=== PATIENT | male | born 1945 | race Caucasian/White ===

== ENCOUNTER 2017-02-24 09:49 | Emergency (ER) | payer MEDICARE ==
[2017-02-24 10:30] VITALS: BP 131/59
--- NOTE | 2017-02-24 10:57 | UC ---
Respiratory Complaint HPI - HPI Summary HPI Summary: cough x 2 weeks + chest congestion , productive cough with yellow sputum + sob , wheezing no fever, no chills - History of Current Complaint Chief Complaint: UCRespiratory Stated Complaint: COUGH,TIGHT CHEST Time Seen by Provider: 02/24/17 10:33 Hx Obtained From: Patient Onset/Duration: Gradual Onset, Lasting Days - 2, Still Present Timing: Constant Severity Initially: Moderate Severity Currently: Moderate Character: Cough: Productive - yellow Aggravating Factors: Exertion, Deep Breaths Alleviating Factors: Nothing Associated Signs And Symptoms: Positive: Dyspnea, Wheezing, URI, Nasal Congestion. Negative: Fever, Chills, Pleuritic Chest Pain, Hemoptysis, Dizziness - Allergies/Home Medications Allergies/Adverse Reactions: Allergies Allergy/AdvReac Type Severity Reaction Status Date / Time Clavulanic Acid AdvReac GI Upset Verified 02/24/17 10:30 environmental Allergy Congestion Uncoded 02/24/17 10:30 Home Medications: Home Medications Amoxicillin CAP* [Amoxicillin 500 MG CAP*] 500 mg PO BID 02/24/17 [History Confirmed 02/24/17] PMH/Surg Hx/FS Hx/Imm Hx Cardiovascular History Of: Reports: Cardiac Disorders - "borderline heart attack ", Hypertension Respiratory History Of: Reports: COPD - "mayo's lung" - Surgical History Surgical History: Yes Surgery Procedure, Year, and Place: Sinus Polyp, 2015, [place]; 2 tooth extractions 2012 and Dec 2013 - Family History Known Family History: Positive: Diabetes - Social History Alcohol Use: None Substance Use Type: None Smoking Status (MU): Never Smoked Tobacco - Immunization History Most Recent Influenza Vaccination: [id number] Most Recent Tetanus Shot: unknown Review of Systems Constitutional: Negative Skin: Negative Eyes: Negative ENT: Nasal Discharge Respiratory: Shortness Of Breath, Cough Cardiovascular: Negative Gastrointestinal: Negative All Other Systems Reviewed And Are Negative: Yes Physical Exam Triage Information Reviewed: Yes Appearance: Well-Appearing, No Pain Distress, Well-Nourished Vital Signs: Initial Vital Signs Temp 98.5 F 02/24/17 10:28 Pulse 56 02/24/17 10:28 Resp 16 02/24/17 10:28 BP 131/59 02/24/17 10:28 Pulse Ox 98 02/24/17 10:28 Vital Signs Reviewed: Yes Eyes: Positive: Conjunctiva Clear ENT: Positive: Normal ENT inspection, Hearing grossly normal, Pharynx normal Neck exam: Normal Neck: Positive: Supple, Nontender, No Lymphadenopathy Respiratory: Positive: Chest non-tender, Lungs clear, Normal breath sounds Cardiovascular: Positive: RRR, No Murmur, Pulses Normal Skin Exam: Normal UC Diagnostic Evaluation - Laboratory O2 Sat by Pulse Oximetry: 98 Respiratory Course/Dx - Differential Dx/Diagnosis Provider Diagnoses: BRONCHITIS Discharge - Discharge Plan Condition: Stable Disposition: HOME Prescriptions: Albuterol HFA INHALER* [Ventolin HFA Inhaler*] 2 puff INH Q6H PRN #1 mdi PRN Reason: Sob/Wheezing Benzonatate CAP* [Tessalon 100 MG CAP*] 100 mg PO TID PRN #21 cap PRN Reason: Cough Prednisone 20 mg PO BID #10 tab Patient Education Materials: Acute Bronchitis (ED) Referrals: Keven Lopez [Primary Care Provider] - 7 Days
== END 2017-02-24 11:02 | disposition home or self-care (01) ==
LOC: UCCORT 09:49
DX: J40 Bronchitis, not specified as acute or chronic (principal); I10 Essential (primary) hypertension; J44.9 Chronic obstructive pulmonary disease, unspecified
CPT/HCPCS: 99212; G0463

== ENCOUNTER 2018-01-28 10:45 | Emergency (ER) | payer MEDICARE ==
[2018-01-28 11:58] VITALS: BP 138/71
[2018-01-28] MEDS ORDERED: Aspirin Low Dose CHEW TAB* 81 MG PO ONE (12:49)
--- NOTE | 2018-01-28 12:52 | ED ---
HPI Cardiac - HPI Summary HPI Summary: 72 yr old male with the complaint of chest ache, SOB. He also complains of sinus congestion. he states he lay down last night to go to bed and felt like he was SOB. He also complains of intermittent ache in his chest, presently, 2. Non radiating. No fever or chills. No NV, sweats. No other complaints. - History of Current Complaint Chief Complaint: UCRespiratory Stated Complaint: SINUS Time Seen by Provider: 01/28/18 12:15 Pain Intensity: 0 - Allergy/Home Medications Allergies/Adverse Reactions: Allergies Allergy/AdvReac Type Severity Reaction Status Date / Time amoxicillin [From Augmentin] AdvReac GI Upset Verified 01/28/18 11:58 clavulanic acid AdvReac GI Upset Verified 01/28/18 11:58 [From Augmentin] Home Medications: Home Medications Fluticasone NASAL SPRAY 50MCG* [Flonase NASAL SPRAY 50MCG*] 2 spray BOTH NARES DAILY 01/28/18 [History Confirmed 01/28/18] Ubidecarenone [Co Q-10] 200 mg PO DAILY 01/28/18 [History Confirmed 01/28/18] PMH/Surg Hx/FS Hx/Imm Hx Cardiovascular History: Reports: Hx Hypertension Respiratory History: Reports: Hx Chronic Obstructive Pulmonary Disease (COPD) - "mayo's lung" - Surgical History Surgery Procedure, Year, and Place: Sinus Polyp, 2016, [place]; 2 tooth extractions 2012 and Dec 2013 Infectious Disease History: No Infectious Disease History: Denies: Traveled Outside the [place] in Last 30 Days - Family History Known Family History: Positive: Diabetes - Social History Alcohol Use: None Substance Use Type: Reports: None Smoking Status (MU): Never Smoked Tobacco Review of Systems Constitutional: Negative Positive: Nasal Discharge Positive: Chest Pain Positive: Shortness Of Breath All Other Systems Reviewed And Are Negative: Yes Physical Exam Triage Information Reviewed: Yes Vital Signs On Initial Exam: Initial Vitals Temp Pulse Resp BP Pulse Ox 97.8 F 69 16 138/71 98 01/28/18 11:53 01/28/18 11:53 01/28/18 11:53 01/28/18 11:53 01/28/18 11:53 Vital Signs Reviewed: Yes Appearance: Positive: Well-Appearing, No Pain Distress Skin: Positive: Warm, Skin Color Reflects Adequate Perfusion Head/Face: Positive: Normal Head/Face Inspection Eyes: Positive: EOMI ENT: Positive: Pharynx normal, Nasal congestion Neck: Positive: Nontender Respiratory/Lung Sounds: Positive: Clear to Auscultation, Breath Sounds Present Cardiovascular: Positive: RRR. Negative: Murmur Abdomen Description: Positive: Nontender Musculoskeletal: Positive: Strength/ROM Intact Neurological: Positive: Sensory/Motor Intact, Alert, Oriented to Person Place, Time, CN Intact II-III Psychiatric: Positive: Normal AVPU Assessment: Alert - [place]ey Coma Scale Best Eye Response: 4 - Spontaneous Best Motor Response: 6 - Obeys Commands Best Verbal Response: 5 - Oriented Coma Scale Total: 15 Diagnostics - Vital Signs Vital Signs Temp Pulse Resp BP Pulse Ox 01/28/18 11:53 97.8 F 69 16 138/71 98 - Laboratory Lab Statement: Any lab studies that have been ordered have been reviewed, and results considered in the medical decision making process. - EKG 01/28/18 Cardiac Rate: NL EKG Rhythm: Sinus Rhythm EKG Interpretation: inverted inferior T waves. Disposition - Course Course Of Treatment: 72 yr old male with ache in his chest. His EKG looks the same compared to 2014. He is signing out AMA with refusal of ambulance transport to the hospital ER. His states she is driving him. - Diagnoses Provider Diagnoses: Chest pain, Shortness of breath Discharge - Discharge Plan Condition: Good Disposition: AGAINST MEDICAL ADVICE Referrals: Irina Silvestre MD [Primary Care Provider] -
== END 2018-01-28 12:54 | disposition left against medical advice (07) ==
LOC: UCCORT 10:45
DX: R07.9 Chest pain, unspecified (principal); R06.02 Shortness of breath; Z88.0 Allergy status to penicillin; Z88.8 Allergy status to other drugs, medicaments and biological substances; J44.9 Chronic obstructive pulmonary disease, unspecified
CPT/HCPCS: 93005; 99212; A9270-GY; G0463

== ENCOUNTER 2018-06-22 14:31 | Emergency (ER) | payer MEDICARE ==
--- OUTSIDE RECORDS SUMMARY | 2018-06-22 14:46 | XMS REPORT ---
:1945 External Reference #:[id number] Author Organization [facility] 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 [employer] Unavailable Delfina Miller PA Primary Care Physician Unavailable Payers Type Date Identification Numbers Payment Provider Subscriber Medicare Primary Policy Number: [id number] Medicare Cedric Phillips PayID: [id number] [address] [place] [address] Commercial Policy Number: [id number] [employer] Medicare Sima Phillips PayID: [id number] [address] [address] [place] [address] Problems Date Description Provider Status Onset: 03/11/2018 Chronic obstructive lung disease ABRAHAN Metcalf Active Onset: 03/11/2018 Essential hypertension ABRAHAN Metcalf Active Onset: 11/03/2003 Localized, primary osteoarthritis Active Onset: 10/05/2014 Syncope and collapse Eileen Phoenix MD Active Onset: 10/05/2014 Chest pain Eileen Phoenix MD Active Onset: 10/16/2014 Conduction disorder of the heart Eileen Phoenix MD Active Family History Date Family Member(s) Problem(s) Comments : (age 92 Father due to Years) Emphysema Father Emphysema : (age 92 Mother due to Diabetes Years) Mother Diabetes Mellitus Type 2 Children 5 1 child with sinus problems 1 son with alcoholism. : (age 77 Paternal Grandfather due to Prostate Years) Cancer Paternal Grandmother Asthma Social History Type Date Description Comments Marital Status Lives With Diet Patient follows no dietary restrictions Occupation Currently Working Occupation [employer] Cigarette Use Never Smoked Cigarettes ETOH Use Negative For Denies alcohol use Smoking Patient denies history of smoking Recreational Drug Use Denies Drug Use Daily Caffeine Does Not Consume Caffeine Exercise Type/Frequency Exercises regularly General Hx Text He reports he has advance directives and health care proxy in place. Allergies, Adverse Reactions, Alerts Date Description Reaction Status Severity Comments 12/14/2009 Environmental active 03/11/2018 Augmentin active nausea Medications Medication Date Status Form Strength Qnty SIG Indications Ordering Provider Benzonatate 06/08/ Hx Capsules 100mg take 1 Unknown 2017 - capsule by mouth 2017 every 6 to 8 hours if needed for cough Doxycycline 06/08/ Hx Capsules 100mg take 1 Unknown Hyclate 2018 - capsule by mouth 2017 twice a day Prednisone 06/08/ Hx Tablets 10mg Take 4 Unknown 2017 - Tablets By Mouth 2017 Daily For 3 Days Then, 3 Tabs Daily For 3... Amlodipine 04/22/ Active Tablets 10mg 30tab 1 by mouth Christine Besylate 2017 s every day Bethany Ferraro Crestor 04/22/ Active Tablets 5mg 30tab 1 tabs by E78.5 Christine 2017 s mouth Bethany Ferraro every day at bedtime Aspir-81 / Active Tablets DR 81mg 1 by mouth Unknown 0000 every day Multivitamins / Active Capsules 90cap 1 by mouth Unknown 0000 s every day Breo Ellipta / Active Aerosol 200-25mcg take 1 Unknown 0000 /Inh puff once daily. Proair HFA / Active Aerosol 108(90Bas take 2 Unknown 0000 e) puffs mcg/Act every 6 hours as needed for shortness of breath. Mometasone / Active Suspension 50mcg/Act one spray Unknown Furoate 0000 each nostril every day - Claritin-D 12 / Active Tablets ER 5-120mg 1 by mouth Unknown Hour 0000 12HR twice a day as needed for congestion /allergies Ipratropium 04/11/ Hx Solution 0.02% 1 spray Garcia Chau 2017 - each beth Portillo MD 06/10/ daily for 2018 2 months. Omron 7 Series 03/11/ Hx Device 1unit use daily I10 Christine Blood Pressure 2017 - s as Bethany Ferraro Monitor 2017 to monitor bp/ dx:htn Pravastatin 10/16/ Tablets 20mg 90tab 1 tab by [place] Sodium 2013 mouth MD Alban 2017 night at bedtime Amlodipine 10/05/ Hx Tablets 5mg 90tab 1 by mouth [place] Besylate 2013 every day MD Alban 2017 Metoprolol / Hx Unknown Succinate 0000 Multivitamins Unknown 0000 Aspirin / Hx Unknown 0000 Garlic Hx Unknown 0000 Metoprolol / Hx Tablets 50mg 180ta 1 po qd Unknown Tartrate - bs 2013 Amlodipine / Hx Tablets 2.5mg 90tab 1 by mouth Unknown Besylate every day 2013 Pravastatin / Hx Tablets 20mg 90tab 1 by mouth [place] Sodium every day MD Alban 2013 Co Q10 Maximum / Hx Capsules 200mg 1 PO Daily Unknown Strength 0000 - 2017 Vital Signs Date Vital Result Comment 06/11/2018 BP Systolic Sitting Left Arm 118 mmHg BP Diastolic Sitting Left Arm 60 mmHg Body Temperature 98.3 F Heart Rate 69 /min Weight 191.00 lb O2 % BldC Oximetry 92 % 04/22/2018 BP Systolic Sitting Right Arm 130 mmHg BP Diastolic Sitting Right Arm 82 mmHg Body Temperature 98.7 F Heart Rate 80 /min Weight 188.25 lb O2 % BldC Oximetry 96 % 03/26/2018 BP Systolic Sitting Left Arm 140 mmHg BP Diastolic Sitting Left Arm 70 mmHg Heart Rate 68 /min Respiratory Rate 18 /min Height 72 inches 6'0" Weight 190.00 lb BMI (Body Mass Index) 25.8 kg/m2 BSA (Body Surface Area) 2.08 m2 [place] body weight in kilograms 81 O2 % BldC Oximetry 97 % 03/11/2018 BP Systolic 142 mmHg BP Diastolic 80 mmHg Body Temperature 97.7 F Heart Rate 70 /min Height 72 inches 6'0" Weight 192.00 lb BMI (Body Mass Index) 26.0 kg/m2 BSA (Body Surface Area) 2.09 m2 [place] body weight in kilograms 81 O2 % BldC Oximetry 97 % 10/16/2014 BP Systolic Sitting Left Arm 142 mmHg BP Diastolic Sitting Left Arm 68 mmHg Heart Rate 62 /min Respiratory Rate 14 /min Height 72 inches 6'0" Weight 196.00 lb BMI (Body Mass Index) 26.6 kg/m2 BSA (Body Surface Area) 2.11 m2 10/05/2014 BP Systolic Sitting Right Arm 140 mmHg BP Diastolic Sitting Right Arm 62 mmHg Heart Rate 46 /min Respiratory Rate 16 /min Height 72 inches 6'0" Weight 195.00 lb BMI (Body Mass Index) 26.4 kg/m2 BSA (Body Surface Area) 2.11 m2 11/01/2009 Height 70 inches 5'10" Weight 196.00 lb BMI (Body Mass Index) 28.1 kg/m2 Results Test Date Test Result H/L Range Note CBS W/Automated Diff 06/09/2018 White Blood Count 12.0 K/uL High 3.4-10.5 1 Red Blood Count 4.88 M/uL 4.20-5.80 1 Hemoglobin 15.7 gm/dL 12.8-17.0 1 Hematocrit 45.6 % 38.0-48.0 1 Mean Cell Volume 93.4 fl 80.0-96.0 1 Mean Corpuscular HGB 32.2 pg 27.0-33.0 1 Mean Corpuscular HGB Conc 34.4 g/dL 31.7-36.0 1 Platelet Count 330 K/uL 155-360 1 Red Cell Distri Width SD 44.0 fl 36-51 1 Red Cell Distri Width %CV 13.2 % 11.6-15.8 1 Mean Platelet Volume 9.2 fL 6.6-10.6 1 Neut% 57.1 % 33.0-73.0 1 Lymph % 29.8 % 20.0-42.0 1 [place] % 12.0 % High 0.0-10.0 1 Eo% 0.9 % 0.0-6.6 1 Bas% 0.2 % 0.0-1.1 1 Neut# 6.86 K/uL 1.8-7.0 1 Lymph # 3.59 K/uL 1.0-4.0 1 [place] # 1.44 K/uL High 0.0-0.8 1 Eos # 0.11 K/uL 0.0-0.5 1 Baso # 0.03 K/uL 0.0-0.1 1 Potassium SerPl-[facility] 01/28/2018 Potassium SerPl-sCnc 4.1 3.5-5.1 Neutrophils/leuk NFr Bld 01/28/2018 Neutrophils/leuk NFr 54.7 33.0-73.0 Auto Bld Auto RDW RBC Auto 01/28/2018 RDW RBC Auto 44.3 36-51 RDW RBC Auto-Rto 01/28/2018 RDW RBC Auto-Rto 13.4 11.6-15.8 Serum carbon dioxide 01/28/2018 Serum carbon dioxide 26 21-32 measurement measurement Serum or plasma albumin 01/28/2018 Serum or plasma albumin 3.9 3.4-5.0 measurement measurement (mass/volume) (mass/volume) Serum or plasma alkaline 01/28/2018 Serum or plasma 70 45-117 phosphatase measurement alkaline phosphatase ( measurement (enzymatic activity/volume) Serum or plasma 01/28/2018 Serum or plasma 23 15-37 aspartate aspartate aminotransferase measure aminotransferase measurement (enzymatic activity/volume) Serum or plasma calcium 01/28/2018 Serum or plasma calcium 8.4 Low 8.5- 10.1 measurement measurement (mass/volume) (mass/volume) Serum or plasma 01/28/2018 Serum or plasma 0.8 0.6-1.3 creatinine measurement creatinine measurement (mass/volum (mass/volume) Serum or plasma glucose 01/28/2018 Serum or plasma glucose 115 High 74- 106 measurement measurement (mass/volume) (mass/volume) Serum or plasma protein 01/28/2018 Serum or plasma protein 7.4 6.4-8.2 measurement measurement (mass/volume) (mass/volume) Serum or plasma total 01/28/2018 Serum or plasma total 0.3 0.2-1.0 bilirubin measurement bilirubin measurement (mass/ (mass/volume) Serum or plasma urea 01/28/2018 Serum or plasma urea 19 High 7-18 nitrogen measurement nitrogen measurement (mass/vo (mass/volume) Serum sodium measurement 01/28/2018 Serum sodium 140 136-145 measurement Anion Gap SerPl-sCnc 01/28/2018 Anion Gap SerPl-sCnc 6 Low 8-16 Automated blood basophil 01/28/2018 Automated blood 0.04 0.0-0.1 count (count/volume) basophil count (count/volume) Automated blood 01/28/2018 Automated blood 0.10 0.0-0.5 eosinophil count eosinophil count Automated blood 01/28/2018 Automated blood 47.1 38.0-48.0 hematocrit (volume hematocrit (volume fraction) fraction) Automated blood 01/28/2018 Automated blood 1.86 1.0-4.0 lymphocyte count lymphocyte count (number/volume) (number/volume) Automated blood platelet 01/28/2018 Automated blood 244 155-360 count platelet count Automated blood platelet 01/28/2018 Automated blood 9.4 6.6-10.6 mean volume measurement platelet mean volume measurement Albumin/Glob SerPl 01/28/2018 Albumin/Glob SerPl 1.1 Alt SerPl-cCnc 01/28/2018 Alt SerPl-cCnc 24 12-78 Automated erythrocyte 01/28/2018 Automated erythrocyte 31.5 27.0-33.0 mean corpuscular mean corpuscular hemoglobin hemoglobin (mass per erythrocyte) Automated erythrocyte 01/28/2018 Automated erythrocyte 34.4 31.7-36.0 mean corpuscular mean corpuscular hemoglobin hemoglobin concentration measurement (mass/volume) Automated erythrocyte 01/28/2018 Automated erythrocyte 91.5 80.0-96.0 mean corpuscular volume mean corpuscular volume BUN/Creat SerPl 01/28/2018 BUN/Creat SerPl 23.7 Basophils/leuk NFr Bld 01/28/2018 Basophils/leuk NFr Bld 0.7 0.0-1.1 Auto Auto Blood erythrocytes 01/28/2018 Blood erythrocytes 5.15 4.20-5.80 automated count automated count (number/volume) (number/volume) Blood hemoglobin 01/28/2018 Blood hemoglobin 16.2 12.8-17.0 measurement measurement (mass/volume) (mass/volume) Blood leukocytes 01/28/2018 Blood leukocytes 6.1 3.4-10.5 automated count automated count (number/volume) (number/volume) Blood monocytes 01/28/2018 Blood monocytes 0.75 0.0-0.8 automated count automated count (number/volume) (number/volume) Chloride SerPl-sCnc 01/28/2018 Chloride SerPl-sCnc 108 High 98-107 Eosinophil/leuk NFr Bld 01/28/2018 Eosinophil/leuk NFr Bld 1.6 0.0-6.6 Auto Auto Globulin Ser Calc-mCnc 01/28/2018 Globulin Ser Calc-mCnc 3.5 1.9-4.3 Lymphocytes/leuk NFr Bld 01/28/2018 Lymphocytes/leuk NFr 30.6 20.0-42.0 Auto Bld Auto Monocytes/leuk NFr Bld 01/28/2018 Monocytes/leuk NFr Bld 12.4 High 0.0- 10.0 Auto Auto Neutrophils # Bld Auto 01/28/2018 Neutrophils # Bld Auto 3.32 1.8-7.0 Laboratory test finding 10/05/2014 TSH Reflex FT4 and/or 1.35 0.36-3.74 2 FT3 uIU/mL 1 ASTHMA ACTING UP 2 QUERY: Reflex add FT3? Y QUERY: Reflex add FT4? Y Procedures Date CPT Code Description Status 04/09/2018 61196 Bronchospasm Provocation Evaluation Multi Spirometric Completed Determinati 04/09/2018 57932 Spirometry Completed 10/05/2014 57100 Holter Monitor 24HR Inter/Report Completed 10/05/2014 28975 EKG-Tracing And Report Completed 09/23/2014 82487 Echocardiogram Complete Completed 09/23/2014 65484 Stress Test Interpre And Report Only Completed 09/23/2014 16348 Stress Test Physician Super Only Completed 09/23/2014 08724 Stress Test Physician Super Only Completed 09/23/2014 94292 EKG Interpretation And Report Only Completed 09/23/2014 37185 Myocardial Imaging Tomographic Multiple Study AT Rest Completed Or Stress 11/01/2009 45084 Radiology, Hips Min. 2 Views, Including Pelvis Completed 11/01/2009 26881 Radiology, L-S Spine Complete Completed Encounters Type Date Location Provider CPT E/M Dx Office Visit 04/22/2018 9:15a Family Medicine ABRAHAN Metcalf 77527 J45.20 I10 E78.5 J31.0 Office Visit 03/26/2018 2:00p [place] [address] J45.20 J32.9 J30.89 Office Visit 03/11/2018 11:00a Family Medicine ABRAHAN Metcalf 20020 J44.1 R53.83 I10 Office Visit 10/16/2014 2:05p [place] [address] 780.2 427.89 Office Visit 10/05/2014 1:05p [place] [address] 427.89 780.2 786.50 Office Visit 09/23/2014 1:24p [place] [address] 786.50 Office Visit 12/16/2009 2:00p Orthopaedic Office Manish BriceñoMaximus Guevarahernan, 11443 726.5 M.D. Office Visit 11/01/2009 1:15p Orthopaedic Office Manish BriceñoMaximus Guevarahernan, 13894 726.5 M.D. 721.3 738.4 Plan of Care Future Appointment(s):07/09/2018 8:30 am - ABRAHAN Metcalf at [facility]06/24/2018 8:30 am - ABRAHAN Metcalf at [facility]06/26/2018 1: 30 pm - Jag Lezama MD at [facility]/31/2018 - ABRAHAN MetcalfJ18.8 Other pneumonia, unspecified organismComments:Complete medications as prescribed.Provide plenty of clear fluids. Try to pace yourself and get someadditional rest. Call office as needed if symptoms worsen or persist longer than expected.Follow up:Push out follow up appt for 4 weeks please.I10 Essential (primary) hypertensionComments:BP reading elevated recently. This may be due to the steroid and impairment of the lungs. Continue to monitor and we will evaluate ate your next visit.J44.1 Chronic obstructive pulmonary disease w (acute) exacerbationComments:Follow up with Dr. Isaacs is schduled for .E78.5 Hyperlipidemia, unspecifiedComments:Crestor is causing some muscle cramping at night. I suggest you take it every other night. We will see if this is better at your next visit. in 4 weeks.
[2018-06-22 14:55] VITALS: BP 128/71
--- NOTE | 2018-06-22 15:08 | UC ---
Throat Pain/Nasal Missael HPI - HPI Summary HPI Summary: 73 year old male presents with 2-3 day history of sore throat. States 2 weeks ago he was evaluated in the ED and diagnosed with pneumonia. He completed a 7 day course of doxycycline with improvement. Sore throat began after receiving allergy shots. Has history of asthma and is maintained on Breo and albuterol PRN. States had some SOB last night that improved with albuterol. Denies fever, chills, oral lesions, nasal congestion, nasal drainage, dysphagia, chest pain, heartburn. - History of Current Complaint Chief Complaint: UCGeneralIllness Stated Complaint: SORE THROAT Time Seen by Provider: 06/22/18 14:38 Hx Obtained From: Patient Onset/Duration: Gradual Onset Severity: Moderate Pain Intensity: 5 Cough: Nonproductive Associated Signs & Symptoms: Positive: Hoarseness. Negative: Dysphagia, Drooling, Wheezing, Sinus Discomfort, Nasal Discharge, Fever, Vomiting Related History: Seasonal Allergies - Allergies/Home Medications Allergies/Adverse Reactions: Allergies Allergy/AdvReac Type Severity Reaction Status Date / Time amoxicillin [From Augmentin] AdvReac GI Upset Verified 01/28/18 11:58 clavulanic acid AdvReac GI Upset Verified 01/28/18 11:58 [From Augmentin] Home Medications: Home Medications Fluticasone/Vilanterol [Breo Ellipta 200-25 Mcg INH] 1 each INH DAILY 06/22/18 [ History Confirmed 06/22/18] Ipratropium Uvalda 1 each INH DAILY 06/22/18 [History Confirmed 06/22/18] Mometasone NASAL (NF) [Nasonex (NF)] 1 spray INH DAILY 06/22/18 [History Confirmed 06/22/18] predniSONE [Prednisone 5 MG TAB] 5 mg PO DAILY 06/22/18 [History Confirmed 06/22] PMH/Surg Hx/FS Hx/Imm Hx Cardiovascular History: Hypertension Respiratory History: Asthma - Surgical History Surgical History: Yes Surgery Procedure, Year, and Place: Sinus Polyp, 2016, [place]; 2 tooth extractions 2012 and Dec 2013 - Family History Known Family History: Positive: Diabetes - Social History Occupation: Employed Full-time - [employer] Lives: With Family Alcohol Use: None Substance Use Type: None Smoking Status (MU): Never Smoked Tobacco - Immunization History Most Recent Influenza Vaccination: [id number] Most Recent Tetanus Shot: unknown Review of Systems Constitutional: Fever, Chills Skin: Negative ENT: Sore Throat Respiratory: Shortness Of Breath Cardiovascular: Negative Gastrointestinal: Negative Is Patient Immunocompromised?: No All Other Systems Reviewed And Are Negative: Yes Physical Exam Triage Information Reviewed: Yes Appearance: Well-Appearing, No Pain Distress, Well-Nourished Vital Signs: Initial Vital Signs Temp 98.5 F 06/22/18 14:46 Pulse 84 06/22/18 14:46 Resp 14 06/22/18 14:46 BP 128/71 06/22/18 14:46 Pulse Ox 96 06/22/18 14:46 Vital Signs Reviewed: Yes ENT: Positive: Pharyngeal erythema - mild, TMs normal, Uvula midline. Negative : Nasal congestion, Nasal drainage, Tonsillar swelling, Tonsillar exudate, Sinus tenderness Neck: Positive: Supple, Nontender, No Lymphadenopathy Respiratory: Positive: Lungs clear, Normal breath sounds, No respiratory distress Cardiovascular: Positive: RRR, No Murmur, Pulses Normal Skin Exam: Normal Throat Pain/Nasal Course/Dx - Course Course Of Treatment: 73 year old male with recent history of pneumonia which was treated outpatient with 7 day course doxycycline presents with 2-3 day history of sore throat. POC rapid strep negative. Hx of environmental allergies. Mild erythema without tonsilar edema or exudate. VSS. Likely a viral or allergy related pharyngitis. Recommend conservative treatment with rest, salt water gargles, OTC analgestics, and pushing fluids. Follow up with PCP in 7 days if no improvement. Verbalizes understanding and agrees with POC. - Differential Dx/Diagnosis Provider Diagnoses: Pharyngitis Discharge - Sign-Out/Discharge Documenting (check all that apply): Patient Departure - Discharge Plan Condition: Stable Disposition: HOME Patient Education Materials: Pharyngitis (ED) Referrals: Delfina Miller PA [Primary Care Provider] - Additional Instructions: Your rapid strep test in the clinic today was negative. I suspect that your symptoms are caused by a virus or allergy related. I do not see any indication for antibiotics at this time. Drink plenty of fluids. Take over the counter acetaminophen (Tylenol) according to directions as needed for pain. Use salt water gargles several times throughout the day to help with the sore throat. You may also use an over the counter Cloraseptic spray or Cepacol lozenges for temporary pain relief. Follow up with you primary care provider in 7 days if no improvement. Seek immediate medical attention in the emergency room for fever greater than 100.5 F, difficulty swallowing, difficulty breathing, or any worsening of symptoms. - Billing Disposition and Condition Condition: STABLE Disposition: Home
== END 2018-06-22 15:28 | disposition home or self-care (01) ==
LOC: UCCORT 14:31
DX: J02.9 Acute pharyngitis, unspecified (principal); Z88.0 Allergy status to penicillin; Z88.8 Allergy status to other drugs, medicaments and biological substances; I10 Essential (primary) hypertension; J45.909 Unspecified asthma, uncomplicated
CPT/HCPCS: 87651; 99211; G0463

== ENCOUNTER 2018-08-16 20:16 | Emergency (ER) | payer MEDICARE ==
--- OUTSIDE RECORDS SUMMARY | 2018-08-16 20:30 | XMS REPORT ---
:1945 External Reference #:[id number] Author Organization [facility] Address [address], [address] [place] [address] Phone [phone] Care Team Providers Name Role Phone Delfina Miller PA Care Team Information Internal Sales Engineer Unavailable Delfina Miller PA Primary Care Physician Unavailable Payers Type Date Identification Numbers Payment Provider Subscriber Commercial Policy Number: [id number] [employer] Medicare Cedric Phillips PayID: [id number] [address] [address] [place] [address] Medicare Primary Expires: 2018 Policy Number: Medicare Cedric Phillips [id number] PayID: [id number] [address] [address] [place] [address] Problems Date Description Provider Status Onset: 03/11/2018 Chronic obstructive lung disease Delfina Miller PA Active Onset: 03/11/2018 Essential hypertension Delfina Miller PA Active Onset: 11/03/2003 Localized, primary osteoarthritis Active [...] Form Strength Qnty SIG Indications Ordering Provider Montelukast 06/26/ Active Tablets 10mg 30tab take 1 J45.40 Kheti, Sodium 2018 s tablet MD Jag daily. Amlodipine 04/22/ Active Tablets 10mg 30tab 1 by mouth Tino Besylate 2018 s every day MD Irene Aspir-81 / Active Tablets DR 81mg 1 [...] a day as needed for congestion /allergies Benzonatate 06/08/ Hx Capsules 100mg take 1 Unknown 2018 - capsule by 2017 every 6 to 8 hours if needed for cough Doxycycline 06/08/ Hx Capsules 100mg take 1 Unknown Hyclate 2018 - capsule by mouth 2017 twice a day Prednisone 06/08/ Hx Tablets 10mg Take 4 Unknown 2018 - Tablets By Mouth 2017 Daily For 3 Days Then, 3 Tabs Daily For 3... Crestor 04/22/ Hx Tablets 5mg 30tab 1 tabs by E78.5 Jasmine 2018 - s mouth Christine, 07/22/ every day M.D. 2018 at bedtime Ipratropium 04/11/ Hx Solution 0.02% 1 spray Chau, [place] 2018 - each beth Portillo MD 06/10/ daily for 2018 2 months. Omron 7 Series 03/11/ Hx Device 1unit use daily I10 Jasmine, Blood Pressure 2017 - s as Christine Monitor 03/12/ karen Sims 2018 to monitor bp/ dx:htn Pravastatin 10/16/ Hx Tablets 20mg 90tab 1 tab by Alban, Sodium 2013 mouth MD Eileen 03/11/ 2017 night at bedtime Amlodipine 10/05/ Hx Tablets 5mg 90tab 1 by mouth Alban Besylate 2013 - every day MD Eileen 2017 Metoprolol / Hx Unknown Succinate 0000 Multivitamins Hx Unknown 0000 Aspirin / Hx Unknown 0000 Garlic / Hx Unknown 0000 Metoprolol / Hx Tablets 50mg 180ta 1 po qd Unknown Tartrate 0000 - bs 2013 Amlodipine / Hx Tablets 2.5mg 90tab 1 by mouth Unknown Besylate - s every day 2013 Pravastatin / Hx Tablets 20mg 90tab 1 by mouth Alfred Phoenix - s every day MD iEleen 2013 Co Q10 Maximum / Hx Capsules 200mg 1 PO Daily Unknown Strength 0000 - 2017 Immunizations CPT Code Status Date Vaccine Lot # [id number] Given 07/22/2018 Influenza Vaccine Split Virus Preservative Free Im [id number] Use Vital Signs Date Vital Result Comment 07/22/2018 BP Systolic Sitting Right Arm 128 mmHg BP Diastolic Sitting Right Arm 72 mmHg Body Temperature 98.2 F Heart Rate 65 /min Weight 189.38 lb O2 % BldC Oximetry 96 % 06/26/2018 BP Systolic Sitting Left Arm 130 mmHg BP Diastolic Sitting Left Arm 80 mmHg Heart Rate 83 /min Respiratory Rate 14 /min Weight 187.00 lb O2 % BldC Oximetry 98 % 06/11/2018 BP Systolic Sitting Left Arm 118 [...] kg/m2 BSA (Body Surface Area) 2.08 m2 Corrigan body weight in kilograms 81 O2 % BldC Oximetry 97 % 03/11/2018 BP Systolic 142 mmHg BP Diastolic 80 mmHg Body Temperature 97.7 F Heart Rate 70 /min Height 72 inches 6'0" Weight 192.00 lb BMI (Body Mass Index) 26.0 kg/m2 BSA (Body Surface Area) 2.09 m2 Corrigan body weight in kilograms 81 O2 % [...] Test Date Test Result H/L Range Note Basic Metabolic Panel 06/24/2018 Glucose 103 mg/dL 74-106 BUN 16 mg/dL 7-18 Creatinine 0.9 mg/dL 0.6-1.3 Glom Filtration Rate, Estimate >60 mL/min >60 If >60 mL/min >60 1 BUN/Creat 17.7 ratio Sodium 140 mmol/L 136-145 Potassium 4.4 mmol/L 3.5-5.1 Chloride 105 mmol/L 98-107 Carbon Dioxide 28 mmol/L 21-32 Anion Gap 7 mEq/L Low 8-16 Calcium 8.6 mg/dL 8.5-10.1 Reflex add FT3? Y Reflex add FT4? Y CBS W/Automated Diff 06/24/2018 White Blood Count 8.4 K/uL 3.4-10.5 Red Blood Count 5.15 M/uL 4.20-5.80 Hemoglobin 16.4 gm/dL 12.8-17.0 Hematocrit 48.9 % High 38.0-48.0 Mean Cell Volume 95.0 fl 80.0-96.0 Mean Corpuscular HGB 31.8 pg 27.0-33.0 Mean Corpuscular HGB Conc 33.5 g/dL 31.7-36.0 Platelet Count 275 K/uL 155-360 Red Cell Distri Width SD 46.4 fl 36-51 Red Cell Distri Width %CV 13.7 % 11.6-15.8 Mean Platelet Volume 9.8 fL 6.6-10.6 Neut% 53.9 % 33.0-73.0 Lymph % 29.5 % 20.0-42.0 Real % 14.7 % High 0.0-10.0 Eo% 1.4 % 0.0-6.6 Bas% 0.5 % 0.0-1.1 Neut# 4.50 K/uL 1.8-7.0 Lymph # 2.47 K/uL 1.0-4.0 Real # 1.23 K/uL High 0.0-0.8 Eos # 0.12 K/uL 0.0-0.5 Baso # 0.04 K/uL 0.0-0.1 TSH Reflex FT4 And/Or FT3 06/24/2018 Thyroid Stim Hormone 2.10 uIU/mL 0.30-4.20 Reflex add FT3? Y Reflex add FT4? Y LDL Cholesterol Profile 06/24/2018 Cholesterol 207 mg/dL High <200 2 Triglycerides 148 mg/dL <150 3 HDL Cholesterol 52 mg/dL >40 4 LDL-Cholesterol 125 mg/dL < 100 5 Reflex add FT3? Y Reflex add FT4? Y Laboratory test finding 06/24/2018 Slide Review DIFF ORDERED Differential-WBC Confirm 06/24/2018 Total Cells Counted 100 #CELLS Neutrophils% 61 % 33-73 Lymph% 25 % 20-42 Monocyte% 14 % High 0-10 Platelet Estimate NORMAL RBC Morphology NORMAL Laboratory test finding 06/22/2018 Rapid Strep Molecular Negative Negative 6 CBS W/Automated Diff 06/09/2018 White Blood Count 12.0 K/uL High 3.4-10.5 7 Red Blood Count 4.88 M/uL 4.20-5.80 7 Hemoglobin 15.7 gm/dL 12.8-17.0 7 Hematocrit 45.6 % 38.0-48.0 7 Mean Cell Volume 93.4 fl 80.0-96.0 7 Mean Corpuscular HGB 32.2 pg 27.0-33.0 7 Mean Corpuscular HGB Conc 34.4 g/dL 31.7-36.0 7 Platelet Count 330 K/uL 155-360 7 Red Cell Distri Width SD 44.0 fl 36-51 7 Red Cell Distri Width %CV 13.2 % 11.6-15.8 7 Mean Platelet Volume 9.2 fL 6.6-10.6 7 Neut% 57.1 % 33.0-73.0 7 Lymph % 29.8 % 20.0-42.0 7 Real % 12.0 % High 0.0-10.0 7 Eo% 0.9 % 0.0-6.6 7 Bas% 0.2 % 0.0-1.1 7 Neut# 6.86 K/uL 1.8-7.0 7 Lymph # 3.59 K/uL 1.0-4.0 7 Real # 1.44 K/uL High 0.0-0.8 7 Eos # 0.11 K/uL 0.0-0.5 7 Baso # 0.03 K/uL 0.0-0.1 7 Neutrophils/leuk NFr 01/28/2018 Neutrophils/leuk NFr 54.7 33.0-73.0 Bld Auto Bld Auto Potassium SerPl-sCnc 01/28/2018 Potassium SerPl-sCnc 4.1 3.5-5.1 RDW RBC Auto 01/28/2018 RDW RBC Auto 44.3 36-51 RDW RBC Auto-Rto 01/28/2018 RDW RBC Auto-Rto 13.4 11.6-15.8 Serum carbon dioxide 01/28/2018 Serum carbon dioxide 26 21-32 measurement measurement Serum or plasma albumin 01/28/2018 Serum or plasma albumin 3.9 3.4-5.0 measurement measurement (mass/volume) (mass/volume) Serum or plasma 01/28/2018 Serum or plasma 70 45-117 alkaline phosphatase alkaline phosphatase measurement ( measurement (enzymatic activity/volume) Serum or plasma 01/28/2018 Serum or plasma 23 15-37 aspartate aspartate aminotransferase aminotransferase measure measurement (enzymatic activity/volume) Serum or plasma calcium [...] measurement nitrogen measurement (mass/vo (mass/volume) Serum sodium 01/28/2018 Serum sodium 140 136-145 measurement measurement Alt SerPl-cCnc 01/28/2018 Alt SerPl-cCnc 24 12-78 Albumin/Glob SerPl 01/28/2018 Albumin/Glob SerPl 1.1 Anion Gap SerPl-sCnc 01/28/2018 Anion Gap SerPl-sCnc 6 Low 8-16 Automated blood 01/28/2018 Automated blood 0.04 0.0-0.1 basophil count basophil count (count/volume) (count/volume) Automated blood 01/28/2018 Automated blood 0.10 0.0-0.5 eosinophil count eosinophil count Automated blood 01/28/2018 Automated blood 47.1 38.0-48.0 hematocrit (volume hematocrit (volume fraction) fraction) Automated blood 01/28/2018 Automated blood 1.86 1.0-4.0 lymphocyte count lymphocyte count (number/volume) (number/volume) Automated blood 01/28/2018 Automated blood 244 155-360 platelet count platelet count Automated blood 01/28/2018 Automated blood 9.4 6.6-10.6 platelet mean volume platelet mean volume measurement measurement Automated erythrocyte 01/28/2018 Automated erythrocyte 31.5 27.0-33.0 mean corpuscular mean corpuscular hemoglobin hemoglobin (mass per erythrocyte) Automated erythrocyte 01/28/2018 Automated erythrocyte 34.4 31.7-36.0 mean corpuscular mean corpuscular hemoglobin hemoglobin concentration measurement (mass/volume) Automated erythrocyte 01/28/2018 Automated erythrocyte 91.5 80.0-96.0 mean corpuscular volume mean corpuscular volume Neutrophils # Bld Auto 01/28/2018 Neutrophils # Bld Auto 3.32 1.8-7.0 Monocytes/leuk NFr Bld 01/28/2018 Monocytes/leuk NFr Bld 12.4 High 0.0- 10.0 Auto Auto Lymphocytes/leuk NFr 01/28/2018 Lymphocytes/leuk NFr 30.6 20.0-42.0 Bld Auto Bld Auto Globulin Ser Calc-mCnc 01/28/2018 Globulin Ser Calc-mCnc 3.5 1.9-4.3 Eosinophil/leuk NFr Bld 01/28/2018 Eosinophil/leuk NFr Bld 1.6 0.0-6.6 Auto Auto Chloride SerPl-sCnc 01/28/2018 Chloride SerPl-sCnc 108 High 98-107 Blood monocytes 01/28/2018 Blood monocytes 0.75 0.0-0.8 automated count automated count (number/volume) (number/volume) Blood leukocytes 01/28/2018 Blood leukocytes 6.1 3.4-10.5 automated count automated count (number/volume) (number/volume) Blood hemoglobin 01/28/2018 Blood hemoglobin 16.2 12.8-17.0 measurement measurement (mass/volume) (mass/volume) Blood erythrocytes 01/28/2018 Blood erythrocytes 5.15 4.20-5.80 automated count automated count (number/volume) (number/volume) Basophils/leuk NFr Bld 01/28/2018 Basophils/leuk NFr Bld 0.7 0.0-1.1 Auto Auto BUN/Creat SerPl 01/28/2018 BUN/Creat SerPl 23.7 Laboratory test finding 10/05/2014 TSH Reflex FT4 and/or 1.35 uIU/mL 0.36 -3.74 8 FT3 1 Note: Persistent reduction for 3 months or more in an eGFR <60 mL/min/1.73 m2 defines CKD. Patients with eGFR values >/=60 mL/min/1.73 m2 may also have CKD if evidence of persistent proteinuria is present. The original MDRD equation for estimated GFR is not valid for patients less than 18 years of age. Additional information may be found at www.kdoqi.org. 2 Reference Guidelines*: Desirable: ........... < 200 mg/dL Borderline High: ..... 200-239 mg/dL High: ................ >=240 mg/dL * The National Cholesterol Education Program (NCEP) 3 Reference Guidelines*: Normal: ............. < 150 mg/dL Borderline High: .... 150-199 mg/dL High: ............... 200-499 mg/dL Very High: .......... > 500 mg/dL * Source: National Cholesterol Education Program (NCEP) 4 Reference Guidelines*: Low HDL: ..... < 40 mg/dL Normal: ..... 40-60 mg/dL Desirable: ... > 60 mg/dL *The National Cholesterol Education Program(NCEP) 5 Reference Guidelines*: Optimal:........... <100 mg/dL Near Optimal....... 100-129 mg/dL Borderline High.... 130-159 mg/dL High............... 160-189 mg/dL Very High.......... >=190 mg/dL * Source: National Cholesterol Education Program (NCEP) 6 [employer] Instructor: [id number] ASTHMA ACTING UP 8 QUERY: Reflex add FT3? Y QUERY: Reflex add FT4? Y Procedures Date CPT Code Description Status 07/22/2018 08199 Remove Impacted Cerumen Completed 06/26/2018 10552 Pulse Oximetry Completed 04/09/2018 99281 Bronchospasm Provocation Evaluation Multi Spirometric Completed Determinati 04/09/2018 42366 Spirometry Completed 10/05/2014 13674 Holter Monitor 24HR Inter/Report Completed 10/05/2014 94495 EKG-Tracing And Report Completed 09/23/2014 59463 Echocardiogram Complete Completed 09/23/2014 12837 Stress Test Interpre And Report Only Completed 09/23/2014 80551 Stress Test Physician Super Only Completed 09/23/2014 26156 Stress Test Physician Super Only Completed 09/23/2014 62574 EKG Interpretation And Report Only Completed 09/23/2014 42881 Myocardial Imaging Tomographic Multiple Study AT Rest Completed Or Stress 11/01/2009 12266 Radiology, Hips Min. 2 Views, Including Pelvis Completed 11/01/2009 76525 Radiology, L-S Spine Complete Completed Encounters Type Date Location Provider CPT E/M Dx Office Visit 07/22/2018 8:00a [facility] [place] [address] I10 J45.40 G47.62 H61.21 Z23 Office Visit 06/26/2018 1:30[place] [address] J45.40 J30.89 Office Visit 06/11/2018 3:15p [facility] [place] [address] J18.8 I10 J44.1 E78.5 Office Visit 04/22/2018 9:15a [facility] [place] [address] J45.20 I10 E78.5 J31.0 Office Visit 03/26/2018 2:00[place] [address] J45.20 J32.9 J30.89 Office Visit 03/11/2018 11:00a [facility] [place] [address] J44.1 R53.83 I10 Office Visit 10/16/2014 2:05p [place] [address] 780.2 427.89 Office Visit 10/05/2014 1:05p [place] [address] 427.89 780.2 786.50 Office Visit 09/23/2014 1:24p [place] [address] 786.50 Office Visit 12/16/2009 2:00p Orthopaedic Office [place] [place] [address]16[address] 726.5 Office Visit 11/01/2009 1:15p Orthopaedic Office [place] 75526 726.5 721.3 738.4 Plan of Care Future Appointment(s):10/21/2018 11:00 am - Delfina Miller PA at [facility]09/25/2018 1:45 pm - Jag Lezama MD at [id number]/10/2018 - Delfina Miller PAI10 Essential (primary) hypertensionComments:Well controlled. Continue current medication. Check in with [facility] to see if they have your mdication or a similar substitue that could cost less.J45.40 Moderate persistent asthma, uncomplicatedComments:Patient reports mild improvement in breathing since adding the Singulair.G47.62 Sleep related leg crampsComments: Stay well hydrated. Try tonic water at bedtime. The suplements you mentioned may also help.H61.21 Impacted cerumen, right earComments:After bathing, gently pull earlobe back, turn head to the side and wiggle a plush towel in the ear opening to draw out any softened wax.Z23 Encounter for immunizationComments: Please check with [facility] and get a record of the shots you have received. You may need a shingles vaccine and a pneumonia shot.
--- OUTSIDE RECORDS SUMMARY | 2018-08-16 20:30 | XMS REPORT ---
:1945 External Reference #:[id number] Author Organization [facility] Address [address], [address] [place] [address] Phone [phone] Care Team Providers Name Role Phone Delfina Miller PA Care Team Information Merchandise Flow Manager Unavailable Delfina Miller PA Primary Care Physician Unavailable Payers Type Date Identification Numbers Payment Provider Subscriber Commercial Policy Number: [id number] [employer] Medicare Cedric Phillips PayID: [id number] [address] [address] [place] [address] Medicare Primary Expires: 2018 Policy Number: Medicare Cedric Phillips [id number] PayID: [id number] [address] [address] [place] [address] Problems Date Description Provider Status Onset: 03/11/2018 [...] Form Strength Qnty SIG Indications Ordering Provider Amoxicillin 08/12/ Active Tablets 875mg 20tab 1 by mouth J01.90 Chano, 2018 s twice a Sia, day PNP-BC, LIQUID SUGAR FORTIFIER, Ibclc Montelukast 06/26/ Active Tablets 10mg 30tab take 1 J45.40 Kheti, Sodium 2018 s tablet MD Jag daily. Amlodipine 04/22/ Active Tablets 10mg 30tab 1 by mouth Tino, Besylate 2018 s every day MD Irene [...] take 1 Unknown 2018 - capsule by mouth 2017 every 6 to 8 hours if needed for cough Doxycycline 06/08/ Hx Capsules 100mg take 1 Unknown Hyclate 2018 - capsule by mouth 2018 twice a day Prednisone 06/08/ Hx Tablets 10mg Take 4 Unknown 2018 - Tablets By Mouth 2018 Daily For 3 Days Then, 3 Tabs Daily For 3... Crestor 04/22/ Hx Tablets 5mg 30tab 1 tabs by E78.5 Jasmine, 2018 - s mouth Christine, 07/22/ every day M.D. 2017 at bedtime Ipratropium 04/11/ Hx Solution 0.02% 1 spray Chau, Seanor 2017 - each beth Portillo MD 06/10/ daily for 2018 2 months. Omron 7 Series 03/11/ Hx Device 1unit use daily I10 Jasmine, Blood Pressure 2017 - s as Christine, Monitor directed M.D. 2018 to monitor bp/ dx:htn Pravastatin 10/16/ Hx Tablets 20mg 90tab 1 tab by Alfred Phoenix 2013 mouth MD Eileen 03/11/ 2017 night at bedtime Amlodipine 10/05/ Hx Tablets 5mg 90tab 1 by mouth Joao Phoenix 2013 every day MD Eileen 2017 Metoprolol / Hx Unknown Succinate 0000 Multivitamins / Hx Unknown 0000 Aspirin / Hx Unknown 0000 Garlic / Hx Unknown 0000 Metoprolol / Hx Tablets 50mg 180ta 1 po qd Unknown Tartrate 0000 - bs 2013 Amlodipine / Hx Tablets 2.5mg 90tab 1 by mouth Unknown Besylate 0000 - s every day 2013 Pravastatin / Hx Tablets 20mg 90tab 1 by mouth Alfred Phoenix s every day MD Eileen 2013 Co Q10 Maximum / Hx Capsules 200mg 1 PO Daily Unknown Strength 0000 - 2017 Immunizations CPT Code Status Date Vaccine Lot # [id number] Given 07/22/2018 Influenza High Dose [id number] Vital Signs Date Vital Result Comment 08/12/2018 BP Systolic 146 mmHg BP Diastolic 80 mmHg Body Temperature 97.0 F Heart Rate 85 /min Respiratory Rate 20 /min Weight 190.00 lb O2 % BldC Oximetry 98 % Ra Pain Level 4 sinuses 07/22/2018 BP Systolic Sitting Right Arm 128 [...] kg/m2 BSA (Body Surface Area) 2.08 m2 Tucker body weight in kilograms 81 O2 % BldC Oximetry 97 % 03/11/2018 BP Systolic 142 mmHg BP Diastolic 80 mmHg Body Temperature 97.7 F Heart Rate 70 /min Height 72 inches 6'0" Weight 192.00 lb BMI (Body Mass Index) 26.0 kg/m2 BSA (Body Surface Area) 2.09 m2 Tucker body weight in kilograms 81 O2 % [...] % 33.0-73.0 Lymph % 29.5 % 20.0-42.0 [place] % 14.7 % High 0.0-10.0 Eo% 1.4 % 0.0-6.6 Bas% 0.5 % 0.0-1.1 Neut# 4.50 K/uL 1.8-7.0 Lymph # 2.47 K/uL 1.0-4.0 [place] # 1.23 K/uL High 0.0-0.8 Eos # [...] 7 Lymph % 29.8 % 20.0-42.0 7 [place] % 12.0 % High 0.0-10.0 7 Eo% 0.9 % 0.0-6.6 7 Bas% 0.2 % 0.0-1.1 7 Neut# 6.86 K/uL 1.8-7.0 7 Lymph # 3.59 K/uL 1.0-4.0 7 [place] # 1.44 K/uL High 0.0-0.8 7 Eos [...] Source: National Cholesterol Education Program (NCEP) 6 Gas Reverser: [id number] ASTHMA ACTING UP 8 QUERY: Reflex add FT3? Y QUERY: Reflex add FT4? Y Procedures Date CPT Code Description Status 07/22/2018 44442 Remove Impacted Cerumen Completed 06/26/2018 02181 Pulse Oximetry Completed 04/09/2018 99005 Bronchospasm Provocation Evaluation Multi Spirometric Completed Determinati 04/09/2018 49986 Spirometry Completed 10/05/2014 35095 Holter Monitor 24HR Inter/Report Completed 10/05/2014 48591 EKG-Tracing And Report Completed 09/23/2014 82326 Echocardiogram Complete Completed 09/23/2014 65175 Stress Test Interpre And Report Only Completed 09/23/2014 13437 Stress Test Physician Super Only Completed 09/23/2014 20730 Stress Test Physician Super Only Completed 09/23/2014 40170 EKG Interpretation And Report Only Completed 09/23/2014 28781 Myocardial Imaging Tomographic Multiple Study AT Rest Completed Or Stress 11/01/2009 76096 Radiology, Hips Min. 2 Views, Including Pelvis Completed 11/01/2009 62274 Radiology, L-S Spine Complete Completed Encounters Type Date Location Provider CPT E/M Dx Office Visit 07/22/2018 8:00a [place] [address] I10 J45.40 G47.62 H61.21 Z23 Office Visit 06/26/2018 1:30[place] [address] J45.40 J30.89 Office Visit 06/11/2018 3:15p [place] [address] J18.8 I10 J44.1 E78.5 Office Visit 04/22/2018 9:15[place] [address] J45.20 I10 E78.5 J31.0 Office Visit 03/26/2018 2:00[place] [address] J45.20 J32.9 J30.89 Office Visit 03/11/2018 11:00[place] [address] J44.1 R53.83 I10 Office Visit 10/16/2014 2:05p [place] [address] 780.2 427.89 Office Visit 10/05/2014 1:05p [place] [address] 427.89 780.2 786.50 Office Visit 09/23/2014 1:24p [place] [address] 786.50 Office Visit 12/16/2009 2:00p Orthopaedic Office Manish Wood [address] 726.5 MD Office Visit 11/01/2009 1:15p Orthopaedic Office DeThomas Manish NavarroMaximus, 42818 726.5 721.3 738.4 Plan of Care Future Appointment(s):10/21/2018 11:00 am - Delfina Miller PA at Family Ewkttlhq89/14/2018 1:45 pm - Jag Lezama MD at Pulmonology
[2018-08-16 20:37] VITALS: BP 132/76
--- NOTE | 2018-08-16 21:01 | UC ---
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 Concerned about pneumonia. " -Here with his . -Reports that he is concerning may have pneumonia because he takes temperature today and it was 100 orally. Has had some tightness in his chest. Has a history of asthma. Takes Singulair and albuterol. Also on Breo. 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 He is concerning restarting allergy shots soon. He is somewhat of a poor historian and is unable to qualify if his sinus pain and pressure is improved or not. He keeps saying that is moved on to his chest. Reports a lot of postnasal drip and phlegm. States he had pneumonia in May. The symptoms feel different however. States that Augmentin causes GI upset. he denies a history of amoxicillin allergy as listed in his chart. - History of Current Complaint Chief Complaint: UCRespiratory Stated Complaint: FEVER/SINUSES Time Seen by Provider: 08/16/18 21:00 Pain Intensity: 0 - Allergies/Home Medications Allergies/Adverse Reactions: Allergies Allergy/AdvReac Type Severity Reaction Status Date / Time amoxicillin [From Augmentin] AdvReac GI Upset Verified 08/16/18 20:37 clavulanic acid AdvReac GI Upset Verified 08/16/18 20:37 [From Augmentin] Home Medications: Home Medications Amoxicillin PO (*) [Amoxicillin 875 MG (*)] 875 mg PO BID 08/16/18 [History Confirmed 08/16/18] PMH/Surg Hx/FS Hx/Imm Hx Previously Healthy: Yes Respiratory History: Asthma - Surgical History Surgical History: Yes Surgery Procedure, Year, and Place: Sinus Polyp, 2016, [place]; 2 tooth extractions 2012 and Dec 2013 - Family History Known Family History: Positive: Diabetes - Social History Alcohol Use: None Substance Use Type: None Smoking Status (MU): Never Smoked Tobacco - Immunization History Most Recent Influenza Vaccination: [id number] Most Recent Tetanus Shot: unknown Review of Systems Constitutional: Fever - MAXIMUM TEMPERATURE 100. Oral. Skin: Negative Eyes: Negative ENT: Negative, Sinus Congestion, Sinus Pain/Tenderness Respiratory: Cough Cardiovascular: Negative Gastrointestinal: Negative Genitourinary: Negative Motor: Negative Neurovascular: Negative Musculoskeletal: Negative Neurological: Negative Psychological: Negative Is Patient Immunocompromised?: No All Other Systems Reviewed And Are Negative: Yes Physical Exam Triage Information Reviewed: Yes Appearance: Well-Appearing, No Pain Distress, Well-Nourished - Somewhat of a poor historian. Vital Signs: Initial Vital Signs Temp 99.8 F 08/16/18 20:30 Pulse 92 08/16/18 20:30 Resp 17 08/16/18 20:30 BP 132/76 08/16/18 20:30 Pulse Ox 95 08/16/18 20:30 Eye Exam: Normal ENT Exam: Normal ENT: Positive: Pharyngeal erythema - Positive postnasal drip. Minimal erythema. , TMs normal. Negative: Hoarse voice, Sinus tenderness Dental Exam: Normal Neck exam: Normal Neck: Positive: 1 Respiratory: Positive: Decreased breath sounds, Other: - Patient did not cough once during entire interview.. Negative: Normal breath sounds, No respiratory distress, No accessory muscle use, Respiratory distress, Crackles, Rhonchi, Stridor, Wheezing Cardiovascular Exam: Normal Cardiovascular: Positive: RRR Abdominal Exam: Normal Abdomen Description: Positive: Nontender, Soft Musculoskeletal Exam: Normal Neurological Exam: Normal Psychological Exam: Normal Skin Exam: Normal UC Diagnostic Evaluation - Laboratory O2 Sat by Pulse Oximetry: 95 Respiratory Course/Dx - Course Course Of Treatment: We discussed risks of prednisone including but not limited to anxiety, agitation, insomnia, GI upset, elevated blood pressures and blood sugar readings, adrenal crisis and avascular necrosis of the hip. -No evidence for bacterial pneumonia based on exam. Small dose of prednisone given to help with tightness - Differential Dx/Diagnosis Differential Diagnosis/HQI/PQRI: Asthma, Lower Resp Infection, Sinusitis Provider Diagnoses: Asthmatic bronchitis Discharge - Sign-Out/Discharge Documenting (check all that apply): Patient Departure All imaging exams completed and their final reports reviewed: No Studies - Discharge Plan Condition: Stable Disposition: HOME Prescriptions: methylPREDNISolone [Medrol Dosepak 4 MG*] 4 mg PO DAILY #1 [place] Patient Education Materials: Asthma (ED), Acute Bronchitis (ED) Referrals: Delfina Miller PA [Primary Care Provider] - 5 Days Additional Instructions: There is no evidence of any pneumonia based upon your exam. Your lungs to indicate that the asthma may be flared as there is not much air movement apparent. The low dose prednisone can help this. continue using allergy meds and inhalers as directed. - Billing Disposition and Condition Condition: STABLE Disposition: Home
== END 2018-08-16 21:44 | disposition home or self-care (01) ==
LOC: UCCORT 20:16
DX: J45.909 Unspecified asthma, uncomplicated (principal); Z88.0 Allergy status to penicillin; Z88.8 Allergy status to other drugs, medicaments and biological substances
CPT/HCPCS: 99212; G0463

== ENCOUNTER 2018-08-23 09:47 | Emergency (ER) | payer MEDICARE ==
--- NOTE | 2018-08-23 11:56 | UC ---
Throat Pain/Nasal Missael HPI - History of Current Complaint Chief Complaint: UCRespiratory Stated Complaint: SINUSES,COUGH,CONGESTION RECHECK Time Seen by Provider: 08/23/18 11:46 Pain Intensity: 8 - Allergies/Home Medications Allergies/Adverse Reactions: Allergies Allergy/AdvReac Type Severity Reaction Status Date / Time amoxicillin [From Augmentin] AdvReac GI Upset Verified 08/16/18 20:37 clavulanic acid AdvReac GI Upset Verified 08/16/18 20:37 [From Augmentin] Home Medications: Home Medications Mometasone NASAL (NF) [Nasonex (NF)] 1 spray .SEE ORDER DAILY WITH MEAL [History Confirmed 08/23/18] Montelukast Sodium TAB* [Singulair TAB*] 10 mg PO DAILY 08/23/18 [History Confirmed 08/23/18] PMH/Surg Hx/FS Hx/Imm Hx - Surgical History Surgical History: Yes Surgery Procedure, Year, and Place: Sinus Polyp, 2016, [place]; 2 tooth extractions 2012 and Dec 2013 - Family History Known Family History: Positive: Diabetes - Social History Alcohol Use: None Substance Use Type: None Smoking Status (MU): Never Smoked Tobacco - Immunization History Most Recent Influenza Vaccination: [id number] Most Recent Tetanus Shot: unknown Physical Exam Vital Signs: Initial Vital Signs Temp 98.3 F 08/23/18 10:36 Pulse 68 08/23/18 10:36 Resp 18 08/23/18 10:36 BP 122/77 08/23/18 10:36 Pulse Ox 98 08/23/18 10:36 Discharge - Discharge Plan Referrals: Delfina Miller PA [Primary Care Provider] -
[2018-08-23] MEDS ORDERED: Albuterol/Ipratropium NEB.SOL* Albuterol 2.5 MG/Ipratropium 0.5 MG 3 ML INH ONE (12:04)
--- NOTE | 2018-08-23 12:04 | UC ---
Respiratory Complaint HPI - HPI Summary HPI Summary: Patient presents to urgent care with recurrent coughing and low-grade fevers. Patient states in August 12 she was seen by his primary doctor. Patient was put on amoxicillin. Patient states she took this for 10 days finishing yesterday. Last Sunday patient was evaluated urgent care for ongoing cough and wheezing. Patient was put on a Medrol Dosepak. Patient states he was feeling good the early part is week. Patient states last night he started to feel crummy again. Patient states he felt short of breath. Patient states he was wheezing. Patient states he was coughing productive of yellow phlegm. Patient' s has an albuterol MDI that he's used 2 or 3 times yesterday and once today with short-term relief. Patient denies lightheadedness. No chest pain. No abdominal pain. No nausea vomiting. Patient did not change his pillowcase nor his toothbrush following his treatment. Patient has not followed up with his primary care doctor. 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 Patient's medications reviewed this visit - History of Current Complaint Chief Complaint: UCRespiratory Stated Complaint: SINUSES,COUGH,CONGESTION RECHECK Time Seen by Provider: 08/23/18 11:46 Hx Obtained From: Patient Onset/Duration: Gradual Onset Severity Initially: Mild Severity Currently: Moderate Pain Intensity: 8 Pain Scale Used: 0-10 Numeric - Allergies/Home Medications Allergies/Adverse Reactions: Allergies Allergy/AdvReac Type Severity Reaction Status Date / Time amoxicillin [From Augmentin] AdvReac GI Upset Verified 08/16/18 20:37 clavulanic acid AdvReac GI Upset Verified 08/16/18 20:37 [From Augmentin] Home Medications: Home Medications Mometasone NASAL (NF) [Nasonex (NF)] 1 spray .SEE ORDER DAILY WITH MEAL [History Confirmed 08/23/18] Montelukast Sodium TAB* [Singulair TAB*] 10 mg PO DAILY 08/23/18 [History Confirmed 08/23/18] PMH/Surg Hx/FS Hx/Imm Hx Previously Healthy: Yes Cardiovascular History: Hypertension Respiratory History: Asthma - Surgical History Surgical History: Yes Surgery Procedure, Year, and Place: Sinus Polyp, 2016, [place]; 2 tooth extractions 2012 and Dec 2013 - Family History Known Family History: Positive: Diabetes - Social History Occupation: Works From/At Home - [employer] Alcohol Use: None Substance Use Type: None Smoking Status (MU): Never Smoked Tobacco - Immunization History Most Recent Influenza Vaccination: [id number] Most Recent Tetanus Shot: unknown Review of Systems Constitutional: Negative Skin: Negative Eyes: Negative ENT: Negative Respiratory: Cough All Other Systems Reviewed And Are Negative: Yes Physical Exam - Summary Physical Exam Summary: Vital Signs Reviewed: Yes A+Ox3, no distress Eyes: Conjunctiva Clear, LULA. EOM intact and full ENT: Hearing grossly normal TM x 2 clear, mild turbianted boggy, pnd, mmoist, uvula midline, no exudate, no erythema Neck: Positive: Supple Respiratory: Positive: No respiratory distress, No accessory muscle use + scattered expiratory wheeze. no rhonci, no cough cardiovascular: RRR nl s1, s2 no m/r no edema abd soft + BS nt/nd no guarding, no distension Musculoskeletal Exam: ORTIZ x 4 without difficulty Strength Intact, ROM Intact Neurological: Positive: Alert, + sensation throughout Psychological: Positive: Normal Response To Family Skin: Positive: no rash, no ecchymosis Triage Information Reviewed: Yes Vital Signs: Initial Vital Signs Temp 98.3 F 08/23/18 10:36 Pulse 68 08/23/18 10:36 Resp 18 08/23/18 10:36 BP 122/77 08/23/18 10:36 Pulse Ox 98 08/23/18 10:36 Diagnostic Evaluation - Laboratory O2 Sat by Pulse Oximetry: 98 - Radiology Radiology Interpretation Completed By: Radiologist - Patient Name: CHANCE RÍOS Medical Record#: [id number] Re-Evaluation - Re-Evaluation First Eval Change: Improved - Pt feels better after neb No wheeze feeling better Will disp nebulizer pred taper Respiratory Course/Dx - Course Course Of Treatment: Patient presents with recurrence of cough and wheeze. Patient was recently treated with antibiotics and draw dose pack. Patient states he was feeling better until last night. Patient has albuterol inhaler but he uses very intermittently. Patient always once today. Patient's concern is getting pneumonia. Patient has not contacted her primary. Vital signs stable. Will check chest x-ray and duoneb. Anticipate will likely longer prednisone taper. We will reinforce secretion precaution. We'll recommend a spacer - Differential Dx/Diagnosis Provider Diagnoses: acute bronchitis Discharge - Sign-Out/Discharge Documenting (check all that apply): Patient Departure All imaging exams completed and their final reports reviewed: Yes - Discharge Plan Condition: Stable Disposition: HOME Patient Education Materials: Acute Bronchitis (ED) Forms: *Gen. Provider Communication Referrals: Delfina Miller PA [Primary Care Provider] - Additional Instructions: -Use your albuterol puffer or nebulizer - 2 puffs ever 4 hours for the next 2 days - use with a spacer - then as needed -Stay well hydrated - avoid excess caffeine and all alcohol - eat regular, healthy meals - Take prednisone exactly as prescribed until gone - change your bed linens and toothbrush - humidify the air in the room where you sleep -Contact your doctor to arrange a follow-up appointment next week. Call your doctor, return here or go to the emergency department with any questions or concerns - Billing Disposition and Condition Condition: STABLE Disposition: Home
--- NOTE | 2018-08-23 12:27 | RAD ---
Indication: Cough and wheezing. 2 views of the chest including dual energy PA views demonstrate no mediastinal shift. Heart is of normal size and configuration. Lung mcmahan demonstrate no pleural fluid, pneumonia or pneumothorax. IMPRESSION: No active cardiopulmonary disease is noted.
[2018-08-23 12:41] VITALS: BP 131/67
== END 2018-08-23 13:13 | disposition home or self-care (01) ==
LOC: UCCORT 09:47
DX: J20.9 Acute bronchitis, unspecified (principal); Z88.0 Allergy status to penicillin; Z88.8 Allergy status to other drugs, medicaments and biological substances; I10 Essential (primary) hypertension; J45.909 Unspecified asthma, uncomplicated
CPT/HCPCS: 71046; 99212; A9270-GY; G0463

== ENCOUNTER 2019-05-14 19:39 | Emergency (ER) | payer MEDICARE ==
--- OUTSIDE RECORDS SUMMARY | 2019-05-14 20:25 | XMS REPORT | Continuity of Care Document ---
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 Delfina Miller PA Primary Care Physician Unavailable Payers Date Identification Numbers Payment Provider Subscriber Policy Number: [id number] [facility] Cedric Phillips PayID: [id number] [address] [address] [place] [address] Expires: 2018 Policy Number: [id number] Medicare Cedric Phillips PayID: [id number] [address] [place] [address] Problems Active Problems Provider Date Chronic obstructive lung disease Delfina Miller PA Onset: 03/11/2018 Essential hypertension Delfina Miller PA Onset: 03/11/2018 Localized, primary osteoarthritis Onset: 11/03/2003 Syncope and collapse Eileen Phoenix MD Onset: 10/05/2014 Chest pain Eileen Phoenix MD Onset: 10/05/2014 Conduction disorder of the heart Eileen Phoenix MD Onset: 10/16/2014 Family History Date Family Member(s) Observation Comments : (age 92 Father due to Emphysema Years) Father Emphysema : (age 92 Mother due to Diabetes Years) Mother Diabetes Mellitus Type 2 Children 5 1 child with sinus problems 1 son with alcoholism. : (age 77 Paternal Grandfather due to Prostate Years) Cancer Paternal Grandmother Asthma Social History Type Date Description Comments Sex Unknown Marital Status Lives With Diet Patient follows no dietary restrictions Occupation Currently Working Occupation [employer] Tobacco Use Start: Unknown Never Smoked Cigarettes ETOH Use Negative For Denies alcohol use Tobacco Use Start: Unknown Patient denies history of smoking Recreational Drug Use Denies Drug Use Smoking Status Reviewed: 04/21/19 Patient denies history of smoking Exercise Type/Frequency Exercises regularly Allergies, Adverse Reactions, Alerts Active Allergies Reaction Severity Comments Date Environmental 12/14/2009 Augmentin nausea 03/11/2018 Medications Active Medications SIG Qnty Indications Ordering Provider Date Allergy Injections weekly Jag Lezama MD 09/25/2018 Amlodipine Besylate 1 by mouth every 90tabs Irene Jiménez, 04/22/2018 day 10mg Tablets Breo Ellipta take 1 puff once Unknown daily. 200-25mcg/Inh Aerosol Proair HFA take 2 puffs every Unknown 6 hours as needed 108(90Base) mcg/Act for shortness of Aerosol breath. Mometasone Furoate one spray each Unknown nostril every day 50mcg/Act Suspension - Albuterol Sulfate inhale contents of Unknown 1 vial in (2.5mg/3ML) 0.083% nebulizer every 4 Nebulizer hours History Medications Prednisone 4 tablets a day 12tabs J44.1 Luis Eduardo, 12/12/2018 - 10mg Tablets x 3 days JOHNSON Munoz 12/17/2018 Shingrix administer 1units Z23 Irene Jiménez MD 10/21/2018 - 50mcg/0.5ML vaccine as 02/18/2019 Suspension Rec directed. w repeat dose in 2-6 months Amoxicillin 1 by mouth 20tabs J01.90 Sia Madden, 08/12/2018 - 875mg twice a day PNP-JORDEN FRANCESP, Ibclc 08/30/2018 Tablets Montelukast Sodium take 1 tablet 90tabs J45.40 Jag Lezama MD 2017 - 10mg daily. 04/21/2019 Tablets Benzonatate take 1 capsule Unknown 06/08/2018 - 100mg by mouth every 06/18/2018 Capsules 6 to 8 hours if needed for cough Doxycycline Hyclate take 1 capsule Unknown 06/08/2018 - by mouth twice 06/18/2018 100mg Capsules a day Prednisone Take 4 Tablets Unknown 06/08/2018 - 10mg Tablets By Mouth Daily 06/13/2018 For 3 Days Then, 3 Tabs Daily For 3... Crestor 1 tabs by mouth 30tabs E78.5 Christine Ferraro M.D. 04/22/2018 - 5mg Tablets every day at 07/22/2018 bedtime Ipratropium [place] 1 spray each Bandar Chau MD 04/11/2018 - nare daily for 06/10/2018 0.02% Solution 2 months. Omron 7 Series Blood use daily as 1units I10 Christine Ferraro M.D. 03/11/2018 - Pressure Monitor directed to 03/12/2018 monitor bp/ Device dx:htn Pravastatin Sodium 1 tab by mouth 90tabs Eileen Phoenix MD 10/16/2014 - 20mg every night at 03/11/2018 Tablets bedtime Amlodipine Besylate 1 by mouth 90tabs Eileen Phoenix MD 10/05/2014 - 5mg every day 04/22/2018 Tablets Metoprolol Succinate Unknown - Unknown Multivitamins Unknown - Unknown Aspirin Unknown - Unknown Garlic Unknown - Unknown Metoprolol Tartrate 1 po qd 180tabs Unknown - 10/05/2014 50mg Tablets Aspir-81 1 by mouth Unknown - 81mg Tablets every day 04/21/2019 DR Multivitamins 1 by mouth 90caps Unknown - Capsules every day 04/21/2019 Amlodipine Besylate 1 by mouth 90tabs Unknown - every day 10/05/2014 2.5mg Tablets Pravastatin Sodium 1 by mouth 90tabs Eileen Phoenix MD - 20mg every day 10/16/2014 Tablets Co Q10 Maximum 1 PO Daily Unknown - Strength 06/11/2018 200mg Capsules Claritin-D 12 Hour 1 by mouth Unknown - twice a day as 04/21/2019 5-120mg Tablets ER needed for 12HR congestion/peña rgies Levocetirizine take 1 tablet a Unknown - Dihydrochloride day. 10/21/2018 5mg Tablets Meclizine HCL take 1 tablet 30tabs Irene Jiménez MD - 25mg by mouth four 04/21/2019 Tablets times a day if needed for vertigo Immunizations CPT Code Status Date Vaccine Lot # [id number] Given 10/21/2018 Pneumovax Injection [id number] 34450 Given 07/22/2018 Influenza High Dose [id number] 30114 Given 09/04/2017 Influenza Virus Vaccine, Quadrivalent, 36 Mos+, .5ML 29252 Given 09/04/2017 Pneumococcal Conjugate Vaccine 13 Valent For Intramuscular Use [id number] Given 10/10/2016 Influenza High Dose 26657 Given 03/29/2015 Zoster Vaccine Live Injection Vital Signs Date Vital Result Comment 04/21/2019 9:01am BP Systolic 124 mmHg BP Diastolic 70 mmHg Heart Rate 69 /min Height 72 inches 6'0" Weight 164.00 lb BMI (Body Mass Index) 22.2 kg/m2 BSA (Body Surface Area) 1.96 m2 [place] body weight in kilograms 81 kg O2 % BldC Oximetry 97 % 12/12/2018 1:44pm BP Systolic Sitting Resting Right Arm 128 mmHg BP Diastolic Sitting Resting Right Arm 76 mmHg Body Temperature 98.9 F Heart Rate 64 /min Respiratory Rate 20 /min Height 72 inches 6'0" Weight 192.00 lb BMI (Body Mass Index) 26.0 kg/m2 BSA (Body Surface Area) 2.09 m2 [place] body weight in kilograms 81 kg O2 % BldC Oximetry 97 % Ra 12/06/2018 2:03pm BP Systolic 138 mmHg BP Diastolic 68 mmHg BP Systolic Sitting Right Arm 142 mmHg BP Diastolic Sitting Right Arm 70 mmHg Heart Rate 77 /min Weight 192.12 lb O2 % BldC Oximetry 97 % 10/21/2018 10:54am BP Systolic Sitting Left Arm 132 mmHg BP Diastolic Sitting Left Arm 84 mmHg Body Temperature 98.4 F Heart Rate 96 /min Weight 191.25 lb O2 % BldC Oximetry 97 % 09/25/2018 1:48pm BP Systolic Sitting Left Arm 130 mmHg BP Diastolic Sitting Left Arm 78 mmHg Heart Rate 78 /min Respiratory Rate 18 /min Weight 191.00 lb O2 % BldC Oximetry 97 % 08/30/2018 10:57am BP Systolic Sitting Right Arm 140 mmHg BP Diastolic Sitting Right Arm 86 mmHg Body Temperature 97.8 F Heart Rate 75 /min Respiratory Rate 18 /min Weight 187.50 lb O2 % BldC Oximetry 94 % 08/12/2018 2:17pm BP Systolic 146 mmHg BP Diastolic 80 mmHg Body Temperature 97.0 F Heart Rate 85 /min Respiratory Rate 20 /min Weight 190.00 lb O2 % BldC Oximetry 98 % Ra Pain Level 4 sinuses 07/22/2018 8:01am BP Systolic Sitting Right Arm 128 mmHg BP Diastolic Sitting Right Arm 72 mmHg Body Temperature 98.2 F Heart Rate 65 /min Weight 189.38 lb O2 % BldC Oximetry 96 % 06/26/2018 1:30pm BP Systolic Sitting Left Arm 130 mmHg BP Diastolic Sitting Left Arm 80 mmHg Heart Rate 83 /min Respiratory Rate 14 /min Weight 187.00 lb O2 % BldC Oximetry 98 % 06/11/2018 3:28pm BP Systolic Sitting Left Arm 118 mmHg BP Diastolic Sitting Left Arm 60 mmHg Body Temperature 98.3 F Heart Rate 69 /min Weight 191.00 lb O2 % BldC Oximetry 92 % 04/22/2018 9:22am BP Systolic Sitting Right Arm 130 mmHg BP Diastolic Sitting Right Arm 82 mmHg Body Temperature 98.7 F Heart Rate 80 /min Weight 188.25 lb O2 % BldC Oximetry 96 % 03/26/2018 2:01pm BP Systolic Sitting Left Arm 140 mmHg BP Diastolic Sitting Left Arm 70 mmHg Heart Rate 68 /min Respiratory Rate 18 /min Height 72 inches 6'0" Weight 190.00 lb BMI (Body Mass Index) 25.8 kg/m2 BSA (Body Surface Area) 2.08 m2 [place] body weight in kilograms 81 kg O2 % BldC Oximetry 97 % 03/11/2018 10:57am BP Systolic 142 mmHg BP Diastolic 80 mmHg Body Temperature 97.7 F Heart Rate 70 /min Height 72 inches 6'0" Weight 192.00 lb BMI (Body Mass Index) 26.0 kg/m2 BSA (Body Surface Area) 2.09 m2 [place] body weight in kilograms 81 kg O2 % BldC Oximetry 97 % 10/16/2014 1:51pm BP Systolic Sitting Left Arm 142 mmHg BP Diastolic Sitting Left Arm 68 mmHg Heart Rate 62 /min Respiratory Rate 14 /min Height 72 inches 6'0" Weight 196.00 lb BMI (Body Mass Index) 26.6 kg/m2 BSA (Body Surface Area) 2.11 m2 10/05/2014 1:11pm BP Systolic Sitting Right Arm 140 mmHg BP Diastolic Sitting Right Arm 62 mmHg Heart Rate 46 /min Respiratory Rate 16 /min Height 72 inches 6'0" Weight 195.00 lb BMI (Body Mass Index) 26.4 kg/m2 BSA (Body Surface Area) 2.11 m2 11/01/2009 2:08pm Height 70 inches 5'10" Weight 196.00 lb BMI (Body Mass Index) 28.1 kg/m2 Results Test Date Facility Test Result H/L Range Note Laboratory test 04/21/2019 [facility] Fit Hemoccult Nagative finding Urine Dipstick 04/21/2019 [facility] Inhouse Ua Color yellow Yellow Ua Clarity clear Clear Ua Leuko negative Negative Ua Nitrite negative Negative Ua Urobilinogen 0.2 0.2 - 1.0 E.U./dL Ua Protein 0.15 g/L High Negative Ua PH 6.0 Low 6.5-7.5 Ua Blood negative Negative Ua Specific [place] 1.020 1.010-1.030 Ua Ketones negative Negative Ua Bilirubin negative Negative Ua Glucose negative Negative CBC W/Automated Diff 12/10/2018 [facility] [address] White Blood 7.0 K/uL N 3.4-10.[address] [place], [place] [id number] [phone] Red Blood Count 5.03 M/uL N 4.20-5.80 Hemoglobin 15.7 gm/dL N 12.8-17.0 Hematocrit 46.5 % N 38.0-48.0 Mean Cell Volume 92.4 fl N 80.0-96.0 Mean Corpuscular HGB 31.2 pg N 27.0-33.0 Mean Corpuscular HGB Conc 33.8 g/dL N 31.7-36.0 Platelet Count 316 K/uL N 155-360 Red Cell Distri Width SD 45.3 fl N 36-51 Red Cell Distri Width %CV 13.7 % N 11.6-15.8 Mean Platelet Volume 9.6 fL N 6.6-10.6 Neut% 57.2 % N 33.0-73.0 Lymph % 26.6 % N 20.0-42.0 [place] % 15.2 % High 0.0-10.0 Eo% 0.6 % N 0.0-6.6 Bas% 0.4 % N 0.0-1.1 Neut# 4.01 K/uL N 1.8-7.0 Lymph # 1.87 K/uL N 1.0-4.0 [place] # 1.07 K/uL High 0.0-0.8 Eos # 0.04 K/uL N 0.0-0.5 Baso # 0.03 K/uL N 0.0-0.1 Comprehensive Metabolic 12/10/[address] Glucose 113 mg/dL High 74-106 Panel [address] [place] [address] [phone] BUN 17 mg/dL N 7-18 Creatinine 0.9 mg/dL N 0.6-1.3 Glom Filtration Rate, Estimate >60 mL/min >60 If >60 mL/min >60 2 BUN/Creat 18.8 ratio Sodium 138 mmol/L N 136-145 Potassium 4.3 mmol/L N 3.5-5.1 Chloride 106 mmol/L N 98-107 Carbon Dioxide 27 mmol/L N 21-32 Anion Gap 5 mEq/L Low 8-16 Calcium 8.3 mg/dL Low 8.5-10.1 Total Protein 7.3 g/dL N 6.4-8.2 Albumin 3.8 g/dL N 3.4-5.0 Globulin 3.5 g/dL N 1.9-4.3 Alb/Glob 1.1 ratio Bilirubin,Total 0.4 mg/dL N 0.2-1.0 Sgot/Ast 31 U/L N 15-37 SGPT/Alt 38 U/L N 12-78 Alkaline Phosphatase 70 U/L N 45-117 Reflex add FT3? Y Reflex add FT4? Y TSH Reflex FT4 12/10/[address] Thyroid Stim 2.56 uIU/mL N 0.30-4.20 And/Or FT3 [address] [place] [address] [phone] Reflex add FT3? Y Reflex add FT4? Y LDL Cholesterol Profile 12/10/[address] Cholesterol 148 mg/dL <200 3 [address] [place], [place] [address] [phone] Triglycerides 69 mg/dL <150 4 HDL Cholesterol 54 mg/dL >40 5 LDL-Cholesterol 80 mg/dL < 100 6 Reflex add FT3? Y Reflex add FT4? Y Laboratory test 12/10/[address] Slide Review DIFF ORDERED finding [address] [place] [address] [phone] Differential-WBC 12/10/[address] Total Cells 100 #CELLS Confirm [address] [place] [address] [phone] Neutrophils% 50 % N 33-73 Lymph% 32 % N 20-42 Atypical Lymph% 7 % N 0-7 Monocyte% 8 % N 0-10 Eosinophil% 2 % N 0-5 Basophil% 1 % N 0-2 Platelet Estimate NORMAL RBC Morphology NORMAL Comprehensive Metabolic 09/21/2018 [facility] Glucose 180 mg/dL High 74-[address] [place] [address] [phone] BUN 15 mg/dL N 7-18 Creatinine 0.8 mg/dL N 0.6-1.3 Glom Filtration Rate, Estimate >60 mL/min >60 If >60 mL/min >60 8 BUN/Creat 18.7 ratio Sodium 139 mmol/L N 136-145 Potassium 4.0 mmol/L N 3.5-5.1 Chloride 104 mmol/L N 98-107 Carbon Dioxide 29 mmol/L N 21-32 Anion Gap 6 mEq/L Low 8-16 Calcium 8.2 mg/dL Low 8.5-10.1 Total Protein 7.0 g/dL N 6.4-8.2 Albumin 3.7 g/dL N 3.4-5.0 Globulin 3.3 g/dL N 1.9-4.3 Alb/Glob 1.1 ratio Bilirubin,Total 0.5 mg/dL N 0.2-1.0 Sgot/Ast 25 U/L N 15-37 SGPT/Alt 30 U/L N 12-78 Alkaline Phosphatase 72 U/L N 45-117 Differential-WBC Confirm 06/24/[address] Total Cells 100 # CELLS [address] [place] [address] [phone] Neutrophils% 61 % N 33-73 Lymph% 25 % N 20-42 Monocyte% 14 % High 0-10 Platelet Estimate NORMAL RBC Morphology NORMAL Laboratory test 06/24/[address] Slide Review DIFF ORDERED finding [address] [place], [place] [id number] [phone] LDL Cholesterol 06/24/[address] Cholesterol 207 mg/dL High < 200 9 Profile [address] [place] [address] [phone] Triglycerides 148 mg/dL <150 10 HDL Cholesterol 52 mg/dL >40 11 LDL-Cholesterol 125 mg/dL < 100 12 Reflex add FT3? Y Reflex add FT4? Y TSH Reflex FT4 06/24/[address] Thyroid Stim 2.10 uIU/mL N 0.30-4.20 And/Or FT3 [address] [facility] Hormone [place], [place] [id number] [phone] Reflex add FT3? Y Reflex add FT4? Y CBS W/Automated Diff 06/24/[address] White Blood 8.4 K/uL N 3.4-10.5 [address] [facility] [place] [address] [phone] Red Blood Count 5.15 M/uL N 4.20-5.80 Hemoglobin 16.4 gm/dL N 12.8-17.0 Hematocrit 48.9 % High 38.0-48.0 Mean Cell Volume 95.0 fl N 80.0-96.0 Mean Corpuscular HGB 31.8 pg N 27.0-33.0 Mean Corpuscular HGB Conc 33.5 g/dL N 31.7-36.0 Platelet Count 275 K/uL N 155-360 Red Cell Distri Width SD 46.4 fl N 36-51 Red Cell Distri Width %CV 13.7 % N 11.6-15.8 Mean Platelet Volume 9.8 fL N 6.6-10.6 Neut% 53.9 % N 33.0-73.0 Lymph % 29.5 % N 20.0-42.0 [place] % 14.7 % High 0.0-10.0 Eo% 1.4 % N 0.0-6.6 Bas% 0.5 % N 0.0-1.1 Neut# 4.50 K/uL N 1.8-7.0 Lymph # 2.47 K/uL N 1.0-4.0 [place] # 1.23 K/uL High 0.0-0.8 Eos # 0.12 K/uL N 0.0-0.5 Baso # 0.04 K/uL N 0.0-0.1 Basic Metabolic Panel 06/24/2018 [facility] [address] Glucose 103 mg/dL N 74- [address] [place], [place] [id number] [phone] BUN 16 mg/dL N 7-18 Creatinine 0.9 mg/dL N 0.6-1.3 Glom Filtration Rate, Estimate >60 mL/min >60 If >60 mL/min >60 13 BUN/Creat 17.7 ratio Sodium 140 mmol/L N 136-145 Potassium 4.4 mmol/L 3.5-5.1 Chloride 105 mmol/L N 98-107 Carbon Dioxide 28 mmol/L N 21-32 Anion Gap 7 mEq/L Low 8-16 Calcium 8.6 mg/dL N 8.5-10.1 Reflex add FT3? Y Reflex add FT4? Y Laboratory test 06/22/2018 [facility] Rapid Strep Negative Negative 14 finding [phone] Molecular CBS W/Automated 06/09/2018 [facility] White Blood 12.0 K/uL High 3.4-10.[address] [place], [place] [id number] [phone] Red Blood Count 4.88 M/uL N 4.20-5.80 Hemoglobin 15.7 gm/dL N 12.8-17.0 Hematocrit 45.6 % N 38.0-48.0 Mean Cell Volume 93.4 fl N 80.0-96.0 Mean Corpuscular HGB 32.2 pg N 27.0-33.0 Mean Corpuscular HGB Conc 34.4 g/dL N 31.7-36.0 Platelet Count 330 K/uL N 155-360 Red Cell Distri Width SD 44.0 fl N 36-51 Red Cell Distri Width %CV 13.2 % N 11.6-15.8 Mean Platelet Volume 9.2 fL N 6.6-10.6 Neut% 57.1 % N 33.0-73.0 Lymph % 29.8 % N 20.0-42.0 [place] % 12.0 % High 0.0-10.0 Eo% 0.9 % N 0.0-6.6 Bas% 0.2 % N 0.0-1.1 Neut# 6.86 K/uL N 1.8-7.0 Lymph # 3.59 K/uL N 1.0-4.0 [place] # 1.44 K/uL High 0.0-0.8 Eos # 0.11 K/uL N 0.0-0.5 Baso # 0.03 K/uL N 0.0-0.1 RDW RBC Auto 01/28/2018 N2N/CCD Import RDW RBC Auto 44.3 36-51 Potassium SerPl-sCnc 01/28/2018 N2N/CCD Import Potassium SerPl-sCnc 4.1 3.5-5.1 RDW RBC Auto-Rto 01/28/2018 N2N/CCD Import RDW RBC Auto-Rto 13.4 11.6- 15. 8 Serum carbon dioxide 01/28/2018 N2N/CCD Import Serum carbon dioxide 26 21-32 measurement measurement Serum or plasma 01/28/2018 N2N/CCD Import Serum or plasma 3.9 3.4-5.0 albumin measurement albumin measurement (mass/volume) (mass/volume) Serum or plasma 01/28/2018 N2N/CCD Import Serum or plasma 70 45-117 alkaline phosphatase alkaline phosphatase measurement ( measurement (enzymatic activity/volume) Serum or plasma 01/28/2018 N2N/CCD Import Serum or plasma 23 15-37 aspartate aspartate aminotransferase aminotransferase measure measurement (enzymatic activity/volume) Serum or plasma 01/28/2018 N2N/CCD Import Serum or plasma 8.4 Low 8.5- 10.1 calcium measurement calcium measurement (mass/volume) (mass/volume) Serum or plasma 01/28/2018 N2N/CCD Import Serum or plasma 0.8 0.6-1.3 creatinine creatinine measurement measurement (mass/volum (mass/volume) Serum or plasma 01/28/2018 N2N/CCD Import Serum or plasma 115 High 74- 106 glucose measurement glucose measurement (mass/volume) (mass/volume) Serum or plasma 01/28/2018 N2N/CCD Import Serum or plasma 7.4 6.4-8.2 protein measurement protein measurement (mass/volume) (mass/volume) Serum or plasma 01/28/2018 N2N/CCD Import Serum or plasma 0.3 0.2-1.0 total bilirubin total bilirubin measurement (mass/ measurement (mass/volume) Serum or plasma urea 01/28/2018 N2N/CCD Import Serum or plasma urea 19 High 7-18 nitrogen measurement nitrogen measurement (mass/vo (mass/volume) Serum sodium 01/28/2018 N2N/CCD Import Serum sodium 140 136-145 measurement measurement Alt SerPl-cCnc 01/28/2018 N2N/CCD Import Alt SerPl-cCnc 24 12-78 Albumin/Glob SerPl 01/28/2018 N2N/CCD Import Albumin/Glob SerPl 1.1 Anion Gap SerPl-sCnc 01/28/2018 N2N/CCD Import Anion Gap SerPl-sCnc 6 Low 8-16 Automated blood 01/28/2018 N2N/CCD Import Automated blood 0.04 0.0-0.1 basophil count basophil count (count/volume) (count/volume) Automated blood 01/28/2018 N2N/CCD Import Automated blood 0.10 0.0-0.5 eosinophil count eosinophil count Automated blood 01/28/2018 N2N/CCD Import Automated blood 47.1 38.0-48. hematocrit (volume hematocrit (volume 0 fraction) fraction) Automated blood 01/28/2018 N2N/CCD Import Automated blood 1.86 1.0-4.0 lymphocyte count lymphocyte count (number/volume) (number/volume) Automated blood 01/28/2018 N2N/CCD Import Automated blood 244 155-360 platelet count platelet count Automated blood 01/28/2018 N2N/CCD Import Automated blood 9.4 6.6-10.6 platelet mean volume platelet mean volume measurement measurement Automated 01/28/2018 N2N/CCD Import Automated 31.5 27.0-33. erythrocyte mean erythrocyte mean 0 corpuscular corpuscular hemoglobin hemoglobin (mass per erythrocyte) Automated 01/28/2018 N2N/CCD Import Automated 34.4 31.7-36. erythrocyte mean erythrocyte mean 0 corpuscular corpuscular hemoglobin hemoglobin concentration measurement (mass/volume) Automated 01/28/2018 N2N/CCD Import Automated 91.5 80.0-96. erythrocyte mean erythrocyte mean 0 corpuscular volume corpuscular volume Neutrophils/leuk NFr 01/28/2018 N2N/CCD Import Neutrophils/leuk NFr 54.7 33.0-73. Bld Auto Bld Auto 0 Neutrophils # Bld 01/28/2018 N2N/CCD Import Neutrophils # Bld 3.32 1.8- 7.0 Auto Auto Monocytes/leuk NFr 01/28/2018 N2N/CCD Import Monocytes/leuk NFr 12.4 High 0.0-10.0 Bld Auto Bld Auto Lymphocytes/leuk NFr 01/28/2018 N2N/CCD Import Lymphocytes/leuk NFr 30.6 20.0-42. Bld Auto Bld Auto 0 Globulin Ser 01/28/2018 N2N/CCD Import Globulin Ser 3.5 1.9-4.3 Calc-mCnc Calc-mCnc Eosinophil/leuk NFr 01/28/2018 N2N/CCD Import Eosinophil/leuk NFr 1.6 0.0-6.6 Bld Auto Bld Auto Chloride SerPl-sCnc 01/28/2018 N2N/CCD Import Chloride SerPl-sCnc 108 High 98-107 Blood monocytes 01/28/2018 N2N/CCD Import Blood monocytes 0.75 0.0-0.8 automated count automated count (number/volume) (number/volume) Blood leukocytes 01/28/2018 N2N/CCD Import Blood leukocytes 6.1 3.4- 10.5 automated count automated count (number/volume) (number/volume) Blood hemoglobin 01/28/2018 N2N/CCD Import Blood hemoglobin 16.2 12.8- 17. measurement measurement 0 (mass/volume) (mass/volume) Blood erythrocytes 01/28/2018 N2N/CCD Import Blood erythrocytes 5.15 4.20-5.8 automated count automated count 0 (number/volume) (number/volume) Basophils/leuk NFr 01/28/2018 N2N/CCD Import Basophils/leuk NFr 0.7 0.0- 1.1 Bld Auto Bld Auto BUN/Creat SerPl 01/28/2018 N2N/CCD Import BUN/Creat SerPl 23.7 Laboratory test 10/05/2014 [facility] TSH Reflex FT4 1.35 0.36-3.[address] and/or FT3 uIU/mL 4 [place] [address] [phone] 1 R42 2 Note: Persistent reduction for 3 months or more in an eGFR <60 mL/min/1.73 m2 defines CKD. Patients with eGFR values >/=60 mL/min/1.73 m2 may also have CKD if evidence of persistent proteinuria is present. The original MDRD equation for estimated GFR is not valid for patients less than 18 years of age. Additional information may be found at www.kdoqi.org. 3 Reference Guidelines*: Desirable: ........... < 200 mg/dL Borderline High: ..... 200-239 mg/dL High: ................ >=240 mg/dL * The National Cholesterol Education Program (NCEP) 4 Reference Guidelines*: Normal: ............. < 150 mg/dL Borderline High: .... 150-199 mg/dL High: ............... 200-499 mg/dL Very High: .......... > 500 mg/dL * Source: National Cholesterol Education Program (NCEP) 5 Reference Guidelines*: Low HDL: ..... < 40 mg/dL Normal: ..... 40-60 mg/dL Desirable: ... > 60 mg/dL *The National Cholesterol Education Program(NCEP) 6 Reference Guidelines*: Optimal:........... <100 mg/dL Near Optimal....... 100-129 mg/dL Borderline High.... 130-159 mg/dL High............... 160-189 mg/dL Very High.......... >=190 mg/dL * Source: National Cholesterol Education Program (NCEP) 7 RACHELY 8 Note: Persistent reduction for 3 months or more in an eGFR <60 mL/min/1.73 m2 defines CKD. Patients with eGFR values >/=60 mL/min/1.73 m2 may also have CKD if evidence of persistent proteinuria is present. The original MDRD equation for estimated GFR is not valid for patients less than 18 years of age. Additional information may be found at www.kdoqi.org. 9 Reference Guidelines*: Desirable: ........... < 200 mg/dL Borderline High: ..... 200-239 mg/dL High: ................ >=240 mg/dL * The National Cholesterol Education Program (NCEP) 10 Reference Guidelines*: Normal: ............. < 150 mg/dL Borderline High: .... 150-199 mg/dL High: ............... 200-499 mg/dL Very High: .......... > 500 mg/dL * Source: National Cholesterol Education Program (NCEP) 11 Reference Guidelines*: Low HDL: ..... < 40 mg/dL Normal: ..... 40-60 mg/dL Desirable: ... > 60 mg/dL *The National Cholesterol Education Program(NCEP) 12 Reference Guidelines*: Optimal:........... <100 mg/dL Near Optimal....... 100-129 mg/dL Borderline High.... 130-159 mg/dL High............... 160-189 mg/dL Very High.......... >=190 mg/dL * Source: National Cholesterol Education Program (NCEP) 13 Note: Persistent reduction for 3 months or more in an eGFR <60 mL/min/1.73 m2 defines CKD. Patients with eGFR values >/=60 mL/min/1.73 m2 may also have CKD if evidence of persistent proteinuria is present. The original MDRD equation for estimated GFR is not valid for patients less than 18 years of age. Additional information may be found at www.kdoqi.org. 14 Director Of Public Health: [id number] ASTHMA ACTING UP 16 QUERY: Reflex add FT3? Y QUERY: Reflex add FT4? Y Procedures Date Code Description Status 07/22/2018 57278 Remove Impacted Cerumen Completed 06/26/2018 25529 Pulse Oximetry Completed 04/09/2018 03462 Bronchospasm Provocation Evaluation Multi Spirometric Completed Determinati 04/09/2018 55918 Spirometry Completed 10/05/2014 24202 Holter Monitor 24HR Inter/Report Completed 10/05/2014 29230 EKG-Tracing And Report Completed 09/23/2014 34331 Echocardiogram Complete Completed 09/23/2014 59337 Stress Test Interpre And Report Only Completed 09/23/2014 11916 Stress Test Physician Super Only Completed 09/23/2014 09965 Stress Test Physician Super Only Completed 09/23/2014 84025 EKG Interpretation And Report Only Completed 09/23/2014 79712 Myocardial Imaging Tomographic Multiple Study AT Rest Or Completed Stress 11/01/2009 76031 Radiology, Hips Min. 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) exacerbation Office Visit 12/06/2018 Family Medicine Delfina Miller, I10 Essential ( primary) 2:00p [address] PA hypertension R42 Dizziness and giddiness J44.1 Chronic obstructive pulmonary disease w (acute) exacerbation Office Visit 10/21/2018 11:00a Family Medicine Delfina Miller, I10 Essential (primary) West RD PA hypertension G47.62 Sleep related leg cramps Z23 Encounter for immunization Office Visit 09/25/2018 1:45p Pulmonology Jag Lezama, J45.20 Mild intermittent MD asthma, uncomplicated J30.89 Other allergic rhinitis Office Visit 08/30/2018 11:00a Family Medicine Treasure Covington, J01.90 Acute sinusitis, West RD 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 CHECK 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 unspecified Office Visit 08/12/2018 2:30p Family Medicine Sia Madden, J01.90 Acute sinusitis, West RD PNP-BC, LOG CHECK SCALER, unspecified Ibclc Office Visit 07/22/2018 8:00a Family Medicine Delfina Miller, I10 Essential (primary) West RD PA hypertension J45.40 Moderate persistent asthma, uncomplicated G47.62 Sleep related leg cramps H61.21 Impacted cerumen, right ear Z23 Encounter for immunization Office Visit 06/26/2018 1:30p Pulmonology Jag Lezama J45.40 Moderate persistent MD asthma, uncomplicated J30.89 Other allergic rhinitis Office Visit 06/11/2018 3:15p Family Medicine Delfina Miller, J18.8 Other pneumonia, West RD PA unspecified organism I10 Essential (primary) hypertension J44.1 Chronic obstructive pulmonary disease w (acute) exacerbation E78.5 Hyperlipidemia, unspecified Office Visit 04/22/2018 9:15a Family Medicine Delfina Miller, J45.[address] PA asthma, uncomplicated I10 Essential (primary) hypertension E78.5 Hyperlipidemia, unspecified J31.0 Chronic rhinitis Office Visit 03/26/2018 2:00p Pulmonology Jag Lezama, J45.20 Mild intermittent MD asthma, uncomplicated J32.9 Chronic sinusitis, unspecified J30.89 Other allergic rhinitis Office Visit 03/11/2018 11:00a Family Medicine Delfina Miller, J44.[address] PA pulmonary disease w (acute) exacerbation R53.83 Other fatigue I10 Essential (primary) hypertension Office Visit 10/16/2014 2:05p Cardiology Office Eileen Phoenix, 780.2 Syncope & MD Collapse 427.89 Cardiac Dysrhythmia Other Office Visit 10/05/2014 1:05p Cardiology Office Eileen Phoenix, 427.89 Cardiac MD Dysrhythmia Other 780.2 Syncope & Collapse 786.50 Pain Chest Unspec Office Visit 09/23/2014 1:24p Cardiology Office Eileen Phoenix, 786.50 Pain Chest Unspec MD Office Visit 12/16/2009 2:00p Orthopaedic Office Nina, 726.5 Enthesopathy Of Manish Gonzalez Hip Region Office Visit 11/01/2009 1:15p Orthopaedic Office Nina 726.5 Enthesopathy Of Manish [facility] Hip Region 721.3 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 Plenty of water, fresh fruits and vegetables and whole grains are in your diet. BP and Lipids look much better!Continue to limit sugary foods and drinks. Limit fried foods, fast foods and processed foods. Continue to exercise on a regular basis. BP and Lipids are well controlled. Stop the Aspirin.I10 Essential ( primary) hypertensionNew Labs:Comprehensive Metabolic Panel, Ordered: CBC W/Automated Diff, Ordered: 04/21/19Comments:Very well controlled. Will keep your medicine the same for now. Please call if it drops lower.Follow up:BP recheck in 6 months.Z12.11 Encounter for screening for malignant neoplasm of colonComments:FIT test is negative. This should be repeated annually.Z12.5 Encounter for screening for malignant neoplasm of prostateNew Labs:Prostate Specific Antigen, Ordered: 04/21/19
[2019-05-14 20:32] VITALS: BP 125/68
[2019-05-14] MEDS ORDERED: Albuterol/Ipratropium NEB.SOL* Albuterol 2.5 MG/Ipratropium 0.5 MG 3 ML INH ONE (20:42)
[2019-05-14] MEDS ORDERED: predniSONE TAB* 20 MG PO ONE (20:43)
--- NOTE | 2019-05-14 20:44 | ED ---
Respiratory - HPI Summary HPI Summary: 74 yr old with SOB and wheezing all day. He states that he has a history of asthma, and also has had pneumonia. He uses his nebs today and they help, but his coughing is productive of brownish sputum. He denies chest pain. He has had some sweats. He has had persistent post nasal drip and sinus congestion. Symptoms are moderate. - History of Current Complaint Chief Complaint: UCRespiratory Stated Complaint: CHEST CONGESTION/COUGH Time Seen by Provider: 05/14/19 20:34 Pain Intensity: 0 - Allergy/Home Medications Allergies/Adverse Reactions: Allergies Allergy/AdvReac Type Severity Reaction Status Date / Time amoxicillin [From Augmentin] AdvReac GI Upset Verified 05/14/19 20:27 clavulanic acid AdvReac GI Upset Verified 05/14/19 20:27 [From Augmentin] PMH/Surg Hx/FS Hx/Imm Hx Endocrine/Hematology History: Denies: Hx Diabetes, Hx Thyroid Disease Cardiovascular History: Reports: Hx Hypertension Respiratory History: Reports: Hx Asthma, Hx Chronic Obstructive Pulmonary Disease (COPD) - "mayo's lung" GI History: Denies: Hx Ulcer - Surgical History Surgery Procedure, Year, and Place: Sinus Polyp, 2016, [place]; 2 tooth extractions 2012 and Dec 2013 Infectious Disease History: No Infectious Disease History: Denies: Hx Hepatitis, Hx Human Immunodeficiency Virus (HIV), Traveled Outside the [place] in Last 30 Days - Family History Known Family History: Positive: Diabetes, Non-Contributory - Social History Alcohol Use: None Substance Use Type: Reports: None Smoking Status (MU): Never Smoked Tobacco Review of Systems Positive: Chills, Fatigue Positive: Nasal Discharge Positive: Shortness Of Breath, Cough All Other Systems Reviewed And Are Negative: Yes Physical Exam Triage Information Reviewed: Yes Vital Signs On Initial Exam: Initial Vitals Temp Pulse Resp BP Pulse Ox 99.3 F 75 16 125/68 98 05/14/19 20:28 05/14/19 20:28 05/14/19 20:28 05/14/19 20:28 05/14/19 20:28 Vital Signs Reviewed: Yes Appearance: Positive: Well-Appearing, No Pain Distress Skin: Positive: Warm, Skin Color Reflects Adequate Perfusion Head/Face: Positive: Normal Head/Face Inspection Eyes: Positive: EOMI, LULA ENT: Positive: Normal ENT inspection, Pharynx normal, Nasal congestion Neck: Positive: Nontender Respiratory/Lung Sounds: Positive: Clear to Auscultation, Breath Sounds Present Cardiovascular: Positive: RRR. Negative: Murmur Abdomen Description: Positive: Nontender Musculoskeletal: Positive: Strength/ROM Intact Neurological: Positive: Sensory/Motor Intact, Alert, Oriented to Person Place, Time, CN Intact II-III Psychiatric: Positive: Normal - Valentine Coma Scale Best Eye Response: 4 - Spontaneous Best Motor Response: 6 - Obeys Commands Best Verbal Response: 5 - Oriented Coma Scale Total: 15 Diagnostics - Vital Signs Vital Signs Temp Pulse Resp BP Pulse Ox 05/14/19 20:28 99.3 F 75 16 125/68 98 - Laboratory Lab Statement: Any lab studies that have been ordered have been reviewed, and results considered in the medical decision making process. - Radiology chest xray Radiology Interpretation Completed By: ED Physician - hyperinflation Disposition - Course Course Of Treatment: 74 yr old with asthmatic bronchitis and sinusitis. Rx with doxy and prednisone. he has nebs at home. - Diagnoses Provider Diagnoses: Sinusitis, Asthmatic bronchitis Discharge - Sign-Out/Discharge Documenting (check all that apply): Patient Departure All imaging exams completed and their final reports reviewed: No - Discharge Plan Condition: Good Disposition: HOME Prescriptions: Doxycycline Monohydrate 100 mg PO BID #20 capsule predniSONE TAB* [Deltasone 20 MG TAB*] 40 mg PO DAILY #8 tab Patient Education Materials: Sinusitis (ED), Acute Bronchitis (ED) Referrals: Delfina Miller PA [Primary Care Provider] - 2 Days - Billing Disposition and Condition Condition: GOOD Disposition: Home
[2019-05-14] MEDS ORDERED: DOXYcycline CAP(*) 100 MG PO ONE (21:12)
== END 2019-05-14 21:25 | disposition home or self-care (01) ==
LOC: UCCORT 19:39
DX: J32.9 Chronic sinusitis, unspecified (principal); J45.909 Unspecified asthma, uncomplicated; I10 Essential (primary) hypertension
CPT/HCPCS: 71046; 99212; A9270-GY; G0463; J7512

== ENCOUNTER 2019-05-20 08:59 | Emergency (ER) | payer MEDICARE ==
[2019-05-20 09:17] VITALS: BP 129/75
--- NOTE | 2019-05-20 09:32 | UC ---
Respiratory Complaint HPI - HPI Summary HPI Summary: cough x 2 weeks chest congestion , productive cough with yellow / green sputum was seen last week for the same problem , was place on doxy and prednisone was improving until yesterday , having chest tightness, sob , wheezing , better with albuterol neb tx, worse with being outside in the heat , no fever, no chills, - History of Current Complaint Chief Complaint: UCRespiratory Stated Complaint: RECHECK-CHEST CONGESTION Time Seen by Provider: 05/20/19 09:05 Hx Obtained From: Patient Onset/Duration: Gradual Onset, Lasting Weeks - 2, Still Present Timing: Constant Severity Initially: Moderate Severity Currently: Moderate Pain Intensity: 0 Character: Cough: Productive - yellow ./ green Aggravating Factors: Exertion, Deep Breaths Alleviating Factors: Nothing Associated Signs And Symptoms: Positive: Dyspnea, Wheezing. Negative: Fever, Chills, Pleuritic Chest Pain, Dizziness, Calf Swelling, URI, Nasal Congestion, Hoarseness, Sinus Discomfort - Allergies/Home Medications Allergies/Adverse Reactions: Allergies Allergy/AdvReac Type Severity Reaction Status Date / Time amoxicillin [From Augmentin] AdvReac GI Upset Verified 05/20/19 09:17 clavulanic acid AdvReac GI Upset Verified 05/20/19 09:17 [From Augmentin] PMH/Surg Hx/FS Hx/Imm Hx Cardiovascular History: Hypertension Respiratory History: COPD, Asthma - Surgical History Surgical History: Yes Surgery Procedure, Year, and Place: Sinus Polyp, 2016, [place]; 2 tooth extractions 2012 and Dec 2013 - Family History Known Family History: Positive: Diabetes, Non-Contributory - Social History Alcohol Use: None Substance Use Type: None Smoking Status (MU): Never Smoked Tobacco - Immunization History Most Recent Influenza Vaccination: [id number] Most Recent Tetanus Shot: unknown Review of Systems All Other Systems Reviewed And Are Negative: Yes Constitutional: Positive: Negative Skin: Positive: Negative Eyes: Positive: Negative ENT: Positive: Negative Respiratory: Positive: Shortness Of Breath, Cough Cardiovascular: Positive: Negative Is Patient Immunocompromised?: No Physical Exam Triage Information Reviewed: Yes Appearance: Well-Appearing, No Pain Distress, Well-Nourished Vital Signs: Initial Vital Signs Temp 98.5 F 05/20/19 09:10 Pulse 55 05/20/19 09:10 Resp 18 05/20/19 09:10 BP 129/75 05/20/19 09:10 Pulse Ox 97 05/20/19 09:10 Vital Signs Reviewed: Yes Eye Exam: Normal Eyes: Positive: Conjunctiva Clear ENT: Positive: Normal ENT inspection, Hearing grossly normal, Pharynx normal. Negative: Pharyngeal erythema, Nasal congestion, Nasal drainage Neck exam: Normal Neck: Positive: Supple, Nontender, No Lymphadenopathy Respiratory: Positive: Chest non-tender, Lungs clear, Decreased breath sounds Cardiovascular: Positive: RRR, No Murmur Psychological Exam: Normal Respiratory Course/Dx - Differential Dx/Diagnosis Provider Diagnosis: Bronchitis Discharge - Sign-Out/Discharge Documenting (check all that apply): Patient Departure All imaging exams completed and their final reports reviewed: No Studies - Discharge Plan Condition: Stable Disposition: HOME Patient Education Materials: Acute Bronchitis (ED) Referrals: Delfina Miller PA [Primary Care Provider] - 7 Days Additional Instructions: increase fluid, cont. with albuterol neb tx ever 4 to 6 hrs as needed for shortness of breath / wheezing - Billing Disposition and Condition Condition: STABLE Disposition: Home
== END 2019-05-20 09:35 | disposition home or self-care (01) ==
LOC: UCCORT 08:59
DX: J44.9 Chronic obstructive pulmonary disease, unspecified (principal); Z88.1 Allergy status to other antibiotic agents; Z88.0 Allergy status to penicillin
CPT/HCPCS: 99211; G0463

== ENCOUNTER 2019-08-31 15:03 | Emergency (ER) | payer MEDICARE ==
--- OUTSIDE RECORDS SUMMARY | 2019-08-31 15:08 | XMS REPORT | Continuity of Care Document ---
:1945 External Reference #:[id number] Author Name Portia Noonan NP (transmitted by agent of provider Omer Phoenix) Address [address] [place] [address] Care Team Providers Name Role Phone Irene Jiménez MD - Family Medicine Care Team Information Banquet Director Problems Active Problems Provider Date Allergic rhinitis due to pollen Omer Phoenix MD Onset: 03/05/2018 Allergic rhinitis Omer Phoenix MD Onset: 03/05/2018 Uncomplicated moderate persistent asthma Omer Phoenix MD Onset: Acute sinusitis Portia Noonan NP Onset: 08/12/2019 Acute bronchitis ABRAHAN Villar Onset: 11/21/2018 Social History Type Date Description Comments Sex Unknown Tobacco Use Start: Unknown Patient has never smoked Tobacco Use Start: Unknown Secondhand smoke exposure in childhood. Smoking Status Reviewed: 03/27/19 Secondhand smoke exposure in childhood. Allergies, Adverse Reactions, Alerts Active Allergies Reaction Severity Comments Date Augmentin Mild GI upset 03/27/2019 Inactive Allergies NKDA 03/28/2018 Medications Active Medications SIG Qnty Indications Ordering Provider Date Clarithromycin take one tablet 28tabs Portia Noonan NP 08/12/2019 500mg by mouth twice a Tablets day x14 days. Prednisone take one tablet 10tabs Portia Noonan NP 08/12/2019 20mg Tablets twice daily x 5 days Albizia-Herbal Omer Bolanos 04/01/2019 Antihistamine MD Alban Nasonex 2 intranasal 1units J30.1 Omer Bolanos 03/05/2018 50mcg/Act puffs every day MD Alban Suspension Breo Ellipta inhale one puff 1units J30.1 Omer AMaximus 03/05/2018 once a day MD Alban 200-25mcg/Inh Aerosol Proair HFA 2 puffs every 4 25.5gm J30.1 Omer Bolanos 03/05/2018 108(90Base) as needed MD Alban mcg/Act Aerosol Amlodipine Besylate 1 by mouth every Unknown 5mg day Tablets Aspir-81 i tab everyday Unknown 81mg Tablets Albuterol Sulfate inhale contents 90ml Omer Bolanos of 1 vial in MD Alban (2.5mg/3ML) 0.083% nebulizer every 4 Nebulizer hours Medications Administered in Office Medication SIG Qnty Indications Ordering Provider Date Allergy Injection 2 Or More Omer Phoenix MD 08/05/2019 Injection Allergy Injection 2 Or More Omer Phoenix MD 07/29/2019 Injection Allergy Injection 2 Or More Omer Phoenix MD 07/22/2019 Injection Allergy Injection 2 Or More Omer Phoenix MD 07/15/2019 Injection Allergy Injection 2 Or More Omer Phoenix MD 07/01/2019 Injection Allergy Injection 2 Or More Omer Phoenix MD 06/24/2019 Injection Allergy Injection 2 Or More Omer Phoenix MD 06/17/2019 Injection Allergy Injection 2 Or More Omer Phoenix MD 06/10/2019 Injection Allergy Injection 2 Or More Omer Phoenix MD 05/29/2019 Injection Allergy Injection 2 Or More Omer Phoenix MD 05/13/2019 Injection Allergy Injection 2 Or More Omer Phoenix MD 05/06/2019 Injection Allergy Injection 2 Or More Omer Phoenix MD 04/29/2019 Injection Allergy Injection 2 Or More Omer Phoenix MD 04/22/2019 Injection Allergy Injection 2 Or More Omer Phoenix MD 04/15/2019 Injection Allergy Injection 2 Or More Omer Phoenix MD 04/08/2019 Injection Allergy Injection 2 Or More Omer Phoenix MD 04/01/2019 Injection Allergy Injection 2 Or More Omer Phoenix MD 03/25/2019 Injection Allergy Injection 2 Or More Omer Phoenix MD 03/18/2019 Injection Allergy Injection 2 Or More Omer Phoenix MD 03/11/2019 Injection Allergy Injection 2 Or More Omer Phoenix MD 03/04/2019 Injection Allergy Injection 2 Or More Omer Phoenix MD 02/25/2019 Injection Allergy Injection 2 Or More Omer Phoenix MD 02/18/2019 Injection Allergy Injection 2 Or More Omer Phoenix MD 02/11/2019 Injection Allergy Injection 2 Or More Omer Phoenix MD 02/04/2019 Injection Allergy Injection 2 Or More Omer Phoenix MD 01/28/2019 Injection Allergy Injection 2 Or More Omer Phoenix MD 01/21/2019 Injection Allergy Injection 2 Or More Omer Phoenix MD 01/07/2019 Injection Allergy Injection 2 Or More Omer Phoenix MD 12/31/2018 Injection Allergy Injection 2 Or More Omer Phoenix MD 12/17/2018 Injection Allergy Injection 2 Or More Omer Phoenix MD 12/10/2018 Injection Allergy Injection 2 Or More Omer Phoenix MD 11/28/2018 Injection Allergy Injection 2 Or More Omer Phoenix MD 11/14/2018 Injection Allergy Injection 2 Or More Omer Phoenix MD 10/31/2018 Injection Allergy Injection 2 Or More Omer Phoenix MD 10/24/2018 Injection Allergy Injection 2 Or More Omer Phoenix MD 10/17/2018 Injection Allergy Injection 2 Or More Omer Phoenix MD 10/08/2018 Injection Allergy Injection 2 Or More Omer Phoenix MD 10/01/2018 Injection Allergy Injection 2 Or More Omer Phoenix MD 09/26/2018 Injection Allergy Injection 2 Or More Omer Phoenix MD 09/19/2018 Injection Allergy Injection 2 Or More Omer Phoenix MD 09/12/2018 Injection Allergy Injection 2 Or More Omer Phoenix MD 09/05/2018 Injection Allergy Injection 2 Or More Omer Phoenix MD 08/29/2018 Injection Allergy Injection 2 Or More Omer Phoenix MD 08/22/2018 Injection Allergy Injection 2 Or More Omer Phoenix MD 08/15/2018 Injection Allergy Injection 2 Or More Omer Phoenix MD 08/08/2018 Injection Allergy Injection 2 Or More Omer Phoenix MD 08/01/2018 Injection Allergy Injection 2 Or More Omer Phoenix MD 07/25/2018 Injection Allergy Injection 2 Or More Omer Phoenix MD 07/18/2018 Injection Allergy Injection 2 Or More Omer Phoenix MD 07/11/2018 Injection Allergy Injection 2 Or More Omer Phoenix MD 07/04/2018 Injection Allergy Injection 2 Or More Omer Phoenix MD 06/27/2018 Injection Allergy Injection 2 Or More Omer Phoenix MD 06/20/2018 Injection Allergy Injection 2 Or More Omer Phoenix MD 06/06/2018 Injection Allergy Injection 2 Or More Omer Phoenix MD 05/30/2018 Injection Allergy Injection 2 Or More Omer Phoenix MD 05/23/2018 Injection Immunizations Description No Information Available Vital Signs Date Vital Result Comment 08/12/2019 2:26pm BP Systolic 127 mmHg BP Diastolic 71 mmHg Height 72 inches 6'0" Weight 159.50 lb BMI (Body Mass Index) 21.6 kg/m2 Heart Rate 65 /min Respiratory Rate 19 /min Body Temperature 98.3 F 03/27/2019 10:30am BP Systolic 100 mmHg BP Diastolic 64 mmHg Height 72 inches 6'0" Weight 188.00 lb BMI (Body Mass Index) 25.5 kg/m2 Heart Rate 53 /min Respiratory Rate 18 /min Body Temperature 98.0 F O2 % BldC Oximetry 97 % Results Description No Information Available Procedures Date Code Description Status 08/05/2019 33989 Allergy Injection 2 Or More Completed 07/29/2019 31481 Allergy Injection 2 Or More Completed 07/22/2019 50917 Allergy Injection 2 Or More Completed 07/15/2019 81305 Allergy Injection 2 Or More Completed 07/01/2019 05289 Allergy Injection 2 Or More Completed 06/24/2019 14240 Allergy Injection 2 Or More Completed 06/17/2019 84406 Allergy Injection 2 Or More Completed 06/11/2019 84909 Allergy Antigens Single Or Multiple Completed 06/10/2019 60359 Allergy Injection 2 Or More Completed 05/29/2019 73618 Allergy Injection 2 Or More Completed 05/13/2019 69460 Allergy Injection 2 Or More Completed 05/06/2019 84193 Allergy Injection 2 Or More Completed 04/29/2019 19627 Allergy Injection 2 Or More Completed 04/22/2019 61095 Allergy Injection 2 Or More Completed 04/15/2019 19252 Allergy Injection 2 Or More Completed 04/08/2019 16387 Allergy Injection 2 Or More Completed 04/01/2019 98841 Allergy Injection 2 Or More Completed 03/27/2019 28916 Nitric Oxide Gas Determination Completed 03/27/2019 20168 Bronchodilation Responsiveness Spirometry Pre/Post Completed Bronchodil Adm 03/25/2019 69698 Allergy Injection 2 Or More Completed 03/18/2019 66506 Allergy Injection 2 Or More Completed 03/13/2019 88954 Allergy Antigens Single Or Multiple Completed 03/11/2019 50067 Allergy Injection 2 Or More Completed 03/04/2019 86275 Allergy Injection 2 Or More Completed 02/25/2019 49466 Allergy Injection 2 Or More Completed 02/18/2019 64743 Allergy Injection 2 Or More Completed Medical Devices Description No Information Available Encounters Type Date Location Provider Dx Diagnosis Office Visit 08/12/2019 Bravo Noonan NP J01.90 Acute sinusitis, 2:30p unspecified Office Visit 03/27/2019 Bravo Gonzalez J45.40 Moderate persistent 10:30a [place], asthma, uncomplicated RPA-C J30.1 Allergic rhinitis due to pollen J30.89 Other allergic rhinitis Assessments Date Code Description Provider 08/12/2019 J01.90 Acute sinusitis, unspecified Omer Phoenix MD 08/12/2019 J01.90 Acute sinusitis, unspecified Portia Noonan NP 08/05/2019 J30.1 Allergic rhinitis due to pollen Omer Phoenix MD 08/05/2019 J30.89 Other allergic rhinitis Omer Phoenix MD 07/29/2019 J30.1 Allergic rhinitis due to pollen Omer Phoenix MD 07/29/2019 J30.89 Other allergic rhinitis Omer Phoenix MD 07/22/2019 J30.1 Allergic rhinitis due to pollen Omer Phoenix MD 07/22/2019 J30.89 Other allergic rhinitis Omer Phoenix MD 07/15/2019 J30.1 Allergic rhinitis due to pollen Omer Phoenix MD 07/15/2019 J30.89 Other allergic rhinitis Omer Phoenix MD 07/01/2019 J30.1 Allergic rhinitis due to pollen Omer Phoenix MD 07/01/2019 J30.89 Other allergic rhinitis Omer Phoenix MD 06/24/2019 J30.1 Allergic rhinitis due to pollen Omer Phoenix MD 06/24/2019 J30.89 Other allergic fiona Phoenix MD 06/17/2019 J30.1 Allergic rhinitis due to pollen Omer Phoenix MD 06/17/2019 J30.89 Other allergic rhinitis Omer Phoenix MD 06/11/2019 J30.1 Allergic rhinitis due to pollen Omer Phoenix MD 06/11/2019 J30.89 Other allergic rhinitis Omer Phoenix MD 06/10/2019 J30.1 Allergic rhinitis due to pollen Omer Phoenix MD 06/10/2019 J30.89 Other allergic fiona Phoenix MD 05/29/2019 J30.1 Allergic rhinitis due to pollen Omer Phoenix MD 05/29/2019 J30.89 Other allergic rhinitis Omer Phoenix MD 05/13/2019 J30.1 Allergic rhinitis due to pollen Omer Phoenix MD 05/13/2019 J30.89 Other allergic rhinitis Omer Phoenix MD 05/06/2019 J30.1 Allergic rhinitis due to pollen Omer Phoenix MD 05/06/2019 J30.89 Other allergic rhinitis Omer Phoenix MD 04/29/2019 J30.1 Allergic rhinitis due to pollen Omer Phoenix MD 04/29/2019 J30.89 Other allergic rhinitis Omer Phoenix MD 04/22/2019 J30.1 Allergic rhinitis due to pollen Omer Phoenix MD 04/22/2019 J30.89 Other allergic rhinitis Omer Phoenix MD 04/15/2019 J30.1 Allergic rhinitis due to pollen Omer Phoenix MD 04/15/2019 J30.89 Other allergic fiona Phoenix MD 04/08/2019 J30.1 Allergic rhinitis due to pollen Omer Phoenix MD 04/08/2019 J30.89 Other allergic rhinitis Omer Phoenix MD 04/01/2019 J30.1 Allergic rhinitis due to pollen Omer Phoenix MD 04/01/2019 J30.89 Other allergic rhinitis Omer Phoenix MD 03/27/2019 J45.40 Moderate persistent asthma, Shanon Stanton RPA-Nate uncomplicated 03/27/2019 J30.1 Allergic rhinitis due to pollen BRIGETTE Benjamin 03/27/2019 J30.89 Other allergic rhinitis HARLAN Benjamin 03/25/2019 J30.1 Allergic rhinitis due to pollen Omer Phoenix MD 03/25/2019 J30.89 Other allergic rhinitis Omer Phoenix MD 03/18/2019 J30.1 Allergic rhinitis due to pollen Omer Phoenix MD 03/18/2019 J30.89 Other allergic fiona Phoenix MD 03/13/2019 J30.1 Allergic rhinitis due to pollen Omer Phoenix MD 03/13/2019 J30.89 Other allergic rhinitis Omer Phoenix MD 03/11/2019 J30.1 Allergic rhinitis due to pollen Omer Phoenix MD 03/11/2019 J30.89 Other allergic rhinitis Omer Phoenix MD 03/04/2019 J30.1 Allergic rhinitis due to pollen Omer Phoenix MD 03/04/2019 J30.89 Other allergic fiona Phoenix MD 02/25/2019 J30.1 Allergic rhinitis due to pollen Omer Phoenix MD 02/25/2019 J30.89 Other allergic rhinitis Omer Phoenix MD 02/18/2019 J30.1 Allergic rhinitis due to pollen Omer Phoenix MD 02/18/2019 J30.89 Other allergic rhinitis Omer Phoenix MD Plan of Treatment Future Appointment(s):09/30/2019 10:00 am - HARLAN Benjamin [facility]08/12/2019 - Portia Noonan, MILDREDJ01.90 Acute sinusitis, unspecifiedComments:Patient presents with acute bacterial sinusitis. He will be treated with Biaxin 500 mg BID x 14 days, and prednisone 20 mg twice a day x 5 days. Follow up if symptoms worsen or persist, and do not improve as anticipated. Functional Status Description No Information Available Mental Status Description No Information Available Referrals Description No Information Available
--- OUTSIDE RECORDS SUMMARY | 2019-08-31 15:08 | XMS REPORT | Continuity of Care Document ---
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 03/05/2018 50mcg/Act puffs every day MD Alban Suspension Breo Ellipta inhale one puff 1units J30.1 Christopher A. 03/05/2018 once a day MD Alban 200-25mcg/Inh Aerosol Proair HFA 2 puffs every 4 25.5gm J30.1 opher A. 03/05/2018 as needed MD Alban 108(90Base) mcg/Act Aerosol Amlodipine Besylate 1 by mouth every Unknown day 5mg Tablets Aspir-81 i tab everyday Unknown 81mg [...] 04/29/2019 Injection Allergy Injection 2 Or More mOer Phoenix MD 04/22/2019 Injection Allergy Injection 2 [...] Available Procedures Date Code Description Status 08/05/2019 98906 Allergy Injection 2 Or More Completed 07/29/2019 73201 Allergy Injection 2 Or More Completed 07/22/2019 58529 Allergy Injection 2 Or More Completed 07/15/2019 19479 Allergy Injection 2 Or More Completed 07/01/2019 58128 Allergy Injection 2 Or More Completed 06/24/2019 98760 Allergy Injection 2 Or More Completed 06/17/2019 39922 Allergy Injection 2 Or More Completed 06/11/2019 55127 Allergy Antigens Single Or Multiple Completed 06/10/2019 21245 Allergy Injection 2 Or More Completed 05/29/2019 08490 Allergy Injection 2 Or More Completed 05/13/2019 11507 Allergy Injection 2 Or More Completed 05/06/2019 95597 Allergy Injection 2 Or More Completed 04/29/2019 03556 Allergy Injection 2 Or More Completed 04/22/2019 64112 Allergy Injection 2 Or More Completed 04/15/2019 57573 Allergy Injection 2 Or More Completed 04/08/2019 98852 Allergy Injection 2 Or More Completed 04/01/2019 00395 Allergy Injection 2 Or More Completed 03/27/2019 74342 Nitric Oxide Gas Determination Completed 03/27/2019 75541 Bronchodilation Responsiveness Spirometry Pre/Post Completed Bronchodil Adm 03/25/2019 11309 Allergy Injection 2 Or More Completed 03/18/2019 57988 Allergy Injection 2 Or More Completed 03/13/2019 52975 Allergy Antigens Single Or Multiple Completed 03/11/2019 44967 Allergy Injection 2 Or More Completed 03/04/2019 22178 Allergy Injection 2 Or More Completed 02/25/2019 82282 Allergy Injection 2 Or More Completed 02/18/2019 28522 Allergy Injection 2 Or More Completed 02/11/2019 86464 Allergy Injection 2 Or More Completed Medical Devices Description No Information Available Encounters Type Date Location Provider Dx Diagnosis Office Visit 03/27/2019 [facility] J45.40 Moderate persistent 10:30a [place], asthma, uncomplicated RPA-C J30.1 Allergic rhinitis due to pollen J30.89 Other allergic rhinitis Assessments Date Code Description Provider 08/05/2019 J30.1 Allergic rhinitis due to pollen [...] Omer Phoenix MD 06/24/2019 J30.89 Other allergic rhinitis Omer Phoenix MD 06/17/2019 J30.1 Allergic rhinitis due to pollen Omer Phoeinx MD 06/17/2019 J30.89 Other allergic rhinitis Omer Phoenix MD 06/11/2019 J30.1 Allergic rhinitis due to pollen Omer Phoenix MD 06/11/2019 J30.89 Other allergic rhinitis Omer Phoenix MD 06/10/2019 J30.1 Allergic rhinitis due to pollen Omer Phoenix MD 06/10/2019 J30.89 Other allergic rhinitis Omer Phoenix MD 05/29/2019 J30.1 Allergic rhinitis due [...] MD 04/15/2019 J30.1 Allergic rhinitis due to raul Phoenix MD 04/15/2019 J30.89 Other allergic rhinitis Omer Phoenix MD 04/08/2019 J30.1 Allergic rhinitis due to pollen Omer Phoenix MD 04/08/2019 J30.89 Other allergic rhinitis Omer Phoenix MD 04/01/2019 J30.1 Allergic rhinitis due to pollen Omer Phoenix MD 04/01/2019 J30.89 Other allergic rhinitis Omer Phoenix MD 03/27/2019 J45.40 Moderate persistent asthma, Shanon Stanton RPA-C uncomplicated 03/27/2019 J30.1 Allergic rhinitis due to pollen Shanon Stanton, RPA -C 03/27/2019 J30.89 Other allergic rhinitis Shanon Stanton, RPA-C 03/25/2019 J30.1 Allergic rhinitis due to pollen Omer Phoenix MD 03/25/2019 J30.89 Other allergic rhinitis Omer Phoenix MD 03/18/2019 J30.1 Allergic rhinitis due to pollen Omer Phoenix MD 03/18/2019 J30.89 Other allergic rhinitis Omer Phoenix MD 03/13/2019 J30.1 Allergic rhinitis due to pollen Omer Phoenix MD 03/13/2019 J30.89 Other allergic rhinitis Omer Phoenix MD 03/11/2019 J30.1 Allergic rhinitis due to pollen Omer Phoenix MD 03/11/2019 J30.89 Other allergic rhinitis Omer Phoenix MD 03/04/2019 J30.1 Allergic rhinitis due to pollen Omer Phoenix MD 03/04/2019 J30.89 Other allergic rhinitis Omer Phoenix MD 02/25/2019 J30.1 Allergic rhinitis due to pollen Omer Phoenix MD 02/25/2019 J30.89 Other allergic rhinitis Omer Phoenix MD 02/18/2019 J30.1 Allergic rhinitis due to pollen Omer Phoenix MD 02/18/2019 J30.89 Other allergic rhinitis Omer Phoenix MD 02/11/2019 J30.1 Allergic rhinitis due to pollen Omer Phoenix MD 02/11/2019 J30.89 Other allergic rhinitis Omer Phoenix MD Plan of Treatment Future Appointment(s):09/30/2019 10:00 am - [facility] at [place] Functional Status Description No Information Available Mental Status Description No Information Available Referrals Description No Information Available
[2019-08-31 16:16] VITALS: BP 99/59
--- NOTE | 2019-08-31 16:30 | UC ---
Minor Trauma HPI - HPI Summary HPI Summary: 74 yo male tripped and fell on lawn chair 48-72 hrs ago sustained multiple abrasions some which look infected no joint pain - History of Current Complaint Chief Complaint: UCSkin Stated Complaint: FALL, BILATERAL HAND INJURY/POSS INFECTION Time Seen by Provider: 08/31/19 16:17 Hx Obtained From: Patient Onset/Duration: Sudden Onset, Lasting Hours, Lasting Days Severity Initially: Moderate Severity Currently: Moderate Pain Intensity: 3 Pain Scale Used: 0-10 Numeric Mechanism Of Injury: Fall From A Standing Position Aggravating Factor(s): Other: - touch Alleviating Factor(s): Nothing Associated Signs And Symptoms: Positive: Swelling. Negative: Loss Of Consciousness, Ecchymosis Body - Head: 1 - muliple abrasions ...some with purulent crusting d/c, dorsal hand edema with erthyema. no tyra tenderness - Risk Factors Penetrating Injury Risk Factors: Negative - Allergies/Home Medications Allergies/Adverse Reactions: Allergies Allergy/AdvReac Type Severity Reaction Status Date / Time amoxicillin [From Augmentin] AdvReac GI Upset Verified 08/31/19 16:16 clavulanic acid AdvReac GI Upset Verified 08/31/19 16:16 [From Augmentin] PMH/Surg Hx/FS Hx/Imm Hx Cardiovascular History: Hypertension Respiratory History: Asthma, Other Other Respiratory History: PINEDO'S LUNG - Surgical History Surgical History: Yes Surgery Procedure, Year, and Place: Sinus Polyp, 2016, [place]; 2 tooth extractions 2012 and Dec 2013 - Family History Known Family History: Positive: Diabetes, Non-Contributory - Social History Alcohol Use: None Substance Use Type: None Smoking Status (MU): Never Smoked Tobacco - Immunization History Most Recent Influenza Vaccination: 2637-5911 Most Recent Tetanus Shot: unknown Review of Systems All Other Systems Reviewed And Are Negative: Yes Constitutional: Positive: Negative Skin: Positive: Negative Eyes: Positive: Negative ENT: Positive: Negative Respiratory: Positive: Negative Cardiovascular: Positive: Negative Gastrointestinal: Positive: Negative Genitourinary: Positive: Negative Motor: Positive: Negative Neurovascular: Positive: Negative Musculoskeletal: Positive: Negative Neurological: Positive: Negative Psychological: Positive: Negative Physical Exam Triage Information Reviewed: Yes Appearance: Well-Appearing, No Pain Distress, Well-Nourished Vital Signs: Initial Vital Signs Temp 99.3 F 08/31/19 16:12 Pulse 70 08/31/19 16:12 Resp 16 08/31/19 16:12 BP 99/59 08/31/19 16:12 Pulse Ox 99 08/31/19 16:12 Vital Signs Reviewed: Yes Eyes: Positive: Conjunctiva Clear ENT: Negative: Hearing grossly normal - bilateral hearing aides, Pharyngeal erythema, Nasal congestion, Nasal drainage, Tonsillar swelling, Tonsillar exudate, Trismus, Muffled voice, Hoarse voice Neck: Positive: Supple Respiratory: Positive: Lungs clear, Normal breath sounds, No respiratory distress, No accessory muscle use Cardiovascular: Positive: RRR, No Murmur Musculoskeletal: Positive: Edema @ - bilat dorsal hand edema Neurological: Positive: Alert Psychological: Positive: Normal Response To Family Skin Exam: Other - multiple abrasions as noted Minor Trauma Course/Dx - Differential Dx/Diagnosis Provider Diagnosis: Abrasion of hand, right, infected, Abrasion of hand, left, infected Discharge ED - Sign-Out/Discharge Documenting (check all that apply): Patient Departure All imaging exams completed and their final reports reviewed: No Studies - Discharge Plan Condition: Stable Disposition: HOME Prescriptions: Cephalexin CAP* [Keflex CAP*] 500 mg PO TID #21 cap Mupirocin 2% OINT* [Bactroban 2 % Oint*] 1 applic TOPICAL TID #1 tube Patient Education Materials: Cellulitis (ED), Abrasion (ED) Referrals: Delfina Miller PA [Primary Care Provider] - 3 Days (if not improved ) - Billing Disposition and Condition Condition: STABLE Disposition: Home
== END 2019-08-31 16:26 | disposition home or self-care (01) ==
LOC: UCCORT 15:03
DX: S60.512A Abrasion of left hand, initial encounter (principal); S60.511A Abrasion of right hand, initial encounter; L08.9 Local infection of the skin and subcutaneous tissue, unspecified; I10 Essential (primary) hypertension; J45.909 Unspecified asthma, uncomplicated; Z88.0 Allergy status to penicillin; W01.0XXA Fall on same level from slipping, tripping and stumbling without subsequent striking against object, initial encounter; Y92.89 Other specified places as the place of occurrence of the external cause
CPT/HCPCS: 99212; G0463

== ENCOUNTER 2019-09-17 15:22 | Emergency (ER) | payer MEDICARE ==
[2019-09-17 15:36] VITALS: BP 130/72
--- NOTE | 2019-09-17 15:49 | UC ---
Truncal Trauma HPI - HPI Summary HPI Summary: 74 yo man with fall from standing height onto the metal bar of a lawn chair which he was moving, directly onto his chest. Fall occurred around 08/29, and he was treated here on 08/31 for cellulitis related to abrasions. He has gradually improved, but concerned today due to increased pain in the mid sternal area last night, same area as when he fell. Same pain provoked if he coughs or sneezes. Admittedly, he did unload wood yesterday. Hx of asthma and chronic sinus infections, no recent increase in cough or shortness of breath. - History Of Current Complaint Chief Complaint: UCUpperExtremity Stated Complaint: RIB PAIN, F/U FALL 2 WEEKS AGO Time Seen by Provider: 09/17/19 15:39 Hx Obtained From: Patient Onset/Duration: Sudden Onset, Lasting Weeks, Worse Since - last pm, abating today without further analgesics. Onset Of Pain: Immediate Severity Initially: Moderate Severity Currently: Mild Pain Intensity: 4 Mechanism Of Injury: Blunt Trauma, Fall From A Standing Position Aggravating Factor(s): Movement, Cough Alleviating factor(s): Nothing Associated Signs And Symptoms: Positive: Chest Pain - in sternal area.. Negative: SOB, Cough - Allergies/Home Medications Allergies/Adverse Reactions: Allergies Allergy/AdvReac Type Severity Reaction Status Date / Time amoxicillin [From Augmentin] AdvReac GI Upset Verified 09/17/19 15:36 clavulanic acid AdvReac GI Upset Verified 09/17/19 15:36 [From Augmentin] PMH/Surg Hx/FS Hx/Imm Hx Cardiovascular History: Cardiac Disease - minor AL about 15 years ago., Hypertension Respiratory History: Asthma - Surgical History Surgical History: Yes Surgery Procedure, Year, and Place: Sinus Polyp, 2016, [place]; 2 tooth extractions 2012 and Dec 2013 - Family History Known Family History: Positive: Diabetes - mother, Other - family members long lived. - Social History Occupation: Retired Lives: With Family Alcohol Use: None Substance Use Type: None Smoking Status (MU): Never Smoked Tobacco - Immunization History Most Recent Influenza Vaccination: 6541-4686 Most Recent Tetanus Shot: unknown Review of Systems All Other Systems Reviewed And Are Negative: Yes Constitutional: Positive: Negative Skin: Negative: Bruising Eyes: Positive: Negative ENT: Positive: Sinus Congestion Respiratory: Positive: Negative Cardiovascular: Positive: Chest Pain Gastrointestinal: Positive: Negative Genitourinary: Positive: Negative Motor: Positive: Negative Neurovascular: Positive: Negative Musculoskeletal: Positive: Arthralgia Neurological: Negative: Headache, Weakness Psychological: Positive: Negative Is Patient Immunocompromised?: No Physical Exam Triage Information Reviewed: Yes Appearance: Well-Appearing, Pain Distress - mild, Obese Vital Signs: Initial Vital Signs Temp 99.5 F 09/17/19 15:31 Pulse 65 09/17/19 15:31 Resp 16 09/17/19 15:31 BP 130/72 09/17/19 15:31 Pulse Ox 99 09/17/19 15:31 Eye Exam: Normal ENT: Positive: Pharynx normal Neck: Positive: Supple, Nontender, No Lymphadenopathy Respiratory Exam: Other - tenderness mid sternum, without associated rib point tenderness. No visible bruising. Respiratory: Positive: Lungs clear, Normal breath sounds Cardiovascular: Positive: RRR, No Murmur Abdomen Description: Positive: Nontender, No Organomegaly, Soft Musculoskeletal Exam: Normal Neurological Exam: Normal Psychological Exam: Normal Skin Exam: Other - ecchymoses on hands. Truncal Trauma Course/Dx - Course Course Of Treatment: chest wall contusion, discussed likely exacerbated by lifting yesterday. Suggest use of acetaminophen prn. No rib tenderness to suggest fracture. - Differential Dx/Diagnosis Differential Diagnosis/HQI/PQRI: Chest Wall Contusion, Rib Fracture Provider Diagnosis: Chest wall contusion Discharge ED - Sign-Out/Discharge Documenting (check all that apply): Patient Departure All imaging exams completed and their final reports reviewed: No Studies - Discharge Plan Condition: Stable Disposition: HOME Patient Education Materials: Contusion in Adults (ED) Referrals: Delfina Miller PA [Primary Care Provider] - Additional Instructions: As reviewed, your sternum could be sore for another 2-3 weeks, particularly after increased activity. Follow up if pain worsens or you develop shortness of breath with it. - Billing Disposition and Condition Condition: STABLE Disposition: Home
== END 2019-09-17 16:05 | disposition home or self-care (01) ==
LOC: UCCORT 15:22
DX: S20.219A Contusion of unspecified front wall of thorax, initial encounter (principal); J45.909 Unspecified asthma, uncomplicated; I10 Essential (primary) hypertension; I25.2 Old myocardial infarction; M25.50 Pain in unspecified joint; Z88.0 Allergy status to penicillin; W17.89XA Other fall from one level to another, initial encounter; Y92.9 Unspecified place or not applicable
CPT/HCPCS: 99211; G0463